=== PATIENT | female | born 1950 | race Caucasian/White ===

== ENCOUNTER 2025-04-22 15:08 | Outpatient (AMB) | payer MEDICARE, SELFPAY ==
--- OUTSIDE RECORDS SUMMARY | 2024-08-08 06:42 | XMS_ITS | Continuity of Care Document ---
Author Organization [facility] Address [address] [place] [address] Phone Care Team Providers Care Family Sociologist Name Role Phone Roman Montaño MD Unavailable Unavailable Allergies, Adverse Reactions, Alerts Substance Reaction Status Criticality UNCLASSIFIED DRUG Active No Informa tion prednisone Active No Information Medications Medication Instructions Dosage Effective Dates (start - stop) Status Comments lisinopril 40 mg tablet take 1 tablet by oral route every day 40 MG - Active chlorthalidone 25 mg tablet take 1 tablet by oral route every day 25 MG - Active Imvexxy Maintenance Pack 10 mcg vaginal insert insert 1 vaginal insert by vaginal route 2 times every week (every 3 or 4 days) 10 MCG - Active Fish Oil 1,000 mg (120 mg-180 mg) capsule - Active ropinirole 0.5 mg tablet take 1 tablet by oral route 3 times every day 0.5 MG - Active carvedilol 25 mg tablet take 1 tablet by oral route 2 times every day with food 25 MG - Active amlodipine 2.5 mg tablet take 1 tablet by oral route every day 2.5 MG - Active rosuvastatin 10 mg tablet take 1 tablet by oral route every day 10 MG - Active Procedures Procedure Date Monovisc, Inj 4mL Drain/inject major joint or bursa Monovisc, Inj 4mL Drain/inject major joint or bursa Office/outpatient visit,est, Straightfor matute Office/outpatient visit,new, Low 2023 X-ray exam of knee, 3 views X-ray exam of knee, 3 views X-ray exam of knee, 3 views X-ray exam of knee, 3 views Office/outpatient visit,[facility] 2023 Advance Directives Directive Yes / No Effective Date File Name No Information Encounters Encounter Description Practice Location Reason(s) For Visit Diagnoses Date Provider Providers Copied on Encounter Office/outpatien t visit,[facility], [address], [place], [place], [id number], tel:[phone] knee pain on the right greater than the left (chief complaint) Body mass index [BMI] 28.0-28.9, adultPrimary osteoarthriti s of left kneePrimary osteoarthriti s of right knee Danyel Owens . [address], [address], [place], [place], [address] , [place]. tel:[phone] Referring Provider: Roman Montaño MD , [address], [place], [address] . tel:[phone] [facility], [address], [place], [place], [address], [place] tel:[phone] Primary osteoarthriti s of left kneePrimary osteoarthriti s of right knee 4 Danyel Owens . [address], [address], [place], [place], [address] , [place]. tel:[phone] Referring Provider: Roman Montaño MD H, [address], [place], [address] . tel:[phone] Office/outpatien t visit,[facility], [address], [place], [place], [address], [place] tel:[phone] knee pain equally on both sides (chief complaint) Body mass index [BMI] 28.0-28.9, adultRight knee pain, unspecified chronicityLef t knee pain, unspecified chronicityPri lai osteoarthriti s of right kneePrimary osteoarthriti s of left knee 4 Danyel Owens . [address], [address], [place], [place], [address] , [place]. tel: [phone] Referring Provider: Roman Montaño MD H, [address], [place], [address] . tel:[phone] [facility], [address], [place], [place], [id number], tel:[phone] No Information 4 Danyel Owens . [address], [address], [place], [place], [address] , [place]. tel: [phone] [facility], [address], [place], [address], [place] tel:[phone] No Information 4 Danyel Owens . [address], [address], [place], [place], [address] , [place]. tel: [phone] Family History Family Member Type Diagnosis Age At Onset Sister Problem (finding) Cancer, unknown Father Problem Cancer, lung Sister Problem (finding) Rheumatoid arthritis Sister Problem (finding) Arthritis Father Problem (finding) Cancer, prostate Maternal grandmother Problem (finding) Cancer, colon Sister Problem (finding) Hypertension Mother Problem (finding) Thyroid disorder Mother Problem (finding) High cholesterol Father Problem (finding) COPD Mother Problem (finding) Osteoarthritis Mother Problem (finding) Hypertension Father Problem (finding) Hypertension Payers Payer name Insurance type Covered republican ID Authoryeseniaa tiilia(s) MEDICARE [id number] BCBS PPO OUT OF STATE [id number] Social History Type Description Quantity Date Captured Comments Alcohol Use Details Wine and vodka 1 Occasionally 025 Caffeine Use Details No Tobacco Use Status Current non-smoker 25 Smoking Status Never smoker Sex Female Vital Signs Date / Time: Height Weight BMI Pulse Rate Blood Pressure Temperature Respiratory Rate Body Surface Area Head Circumference Head Circ. Percentile Wt./Marshall. Percentile BMI percentile Pulse Ox Inhaled Ox 11:01 AM 68.00 in 83.915 kg (185.00 lbs) 28.1 3 kg/m eter (2) 2.01 meter(2) Chief Complaint And Reason For Visit From encounter dated '08/08/2024 10:42'. knee pain on the right greater than the left (chief complaint). Description: Ms Romero is a 74 year old female who complains of knee pain on the right greater than the left. Patient presents today forbilateral Monovisc injections- She presents with pain on the right greater than the left side. She states that the symptoms have been chronic non-traumatic. The symptoms occur intermittently. The problem is fluctuating. Currently the patient states that the symptoms are moderate-severe. The pain isdescribed as aching. The symptoms occur intermittently. She also reports additional pain in the entire knee region on the right greater than the left side. She rates her worst pain as 8/10. She ratesher current pain as 0/10. The symptoms are aggravated by daily activities. Romy states that the symptoms are relieved by no specific activity. Reason For Referral Reason For Referral No Information Plan Of Treatment Date Type Action Status Goal Lifestyle education regardin g diet completed Goal Lifestyle education regardin g diet completed Goal Lifestyle education regardin g diet completed Referral Ordered: X-ray exam of knee, 3 views LT ordered Referral Ordered: X-ray exam of knee, 3 views RT ordered History Of Present Illness Encounter Date Complaint History Of Prese nt Illness knee pain on the rig ht greater than the left Ms Romero is a 74 year old female who complains of knee pain on the right greater than the left. Patient presents today for bilateral Monovisc injections- She presents with pain on the right greater than the left side. She states that the symptoms have been chronic non-traumatic. The symptoms occur intermittently. The problem is fluctuating. Currently the patient states that the symptoms are moderate-severe. The pain is described as aching. The symptoms occur intermittently. She also reports additional pain in the entire knee region on the right greater than the left side. She rates her worst pain as 8/10. She rates her current pain as 0/10. The symptoms are aggravated by daily activities. Romy states that the symptoms are relieved by no specific activity. knee pain equally on both sides Romy Romero is a 74 year old female. Patient presents to the office for ER follow up of the right knee. She states she developed severe pain in the right knee while traveling. She also would like to have her left knee looked at as well as that one is bothering her today as well. She presents with pain and stiffness on the right and left side equally. The symptoms occur constantly with intermittent worsening. The problem is unchanged. Currently the patient states that the symptoms are moderate. The pain is described as aching and discomforting. The symptoms occur continuously. The patient is experiencing pain in the following location: posterior and medial side of knee on the right side and medial side of knee on the left side. She rates her worst pain as 7/10. She rates her current pain as 3/10. The pain does not radiate. The symptoms are aggravated by standing and walking. Romy states that the symptoms are relieved by ice, elevation and brace. Functional Status Date Functional Assessmen t No Information Instructions Date Instruction Additional Infor ayaz Patient is here for bilateral Monovisc injections. We reviewed the medication as well as expectations. She tolerated the injections well, may continue with activity as tolerated. Follow-up on an as necessary based Related to Primary osteoarthritis of right knee Lifestyle education regarding di et Related to Body mass index [BMI] 28.0-28.9, adult We discussed imaging and exam findings. Presents with a chief complaint of bilateral knee pain. No specific antecedent trauma but she thinks it began after a long drive. Her findings are consistent with primary osteoarthritis of both knees, particular the medial compartments. We discussed potential pathologies including injections and joint replacement surgery. She is doing well enough at this point that she wishes to hold off on any sort of formal intervention and continue with activity as tolerated. NSAIDs as necessary for pain, follow-up on an as necessary basis Related to Primary osteoarthritis of left knee Lifestyle education regarding di et Related to Body mass index [BMI] 28.0-28.9, adult Lifestyle education regarding di et Related to Body mass index [BMI] 28.0-28.9, adult Assessments Type Assessment Date assessment Body mass index [BMI] 28.0-28.9, adult assessment Primary osteoarthritis of left k nee assessment Primary osteoarthritis of right knee impression Body mass index [BMI] 28.0-28.9, adult. impression Primary osteoarthritis of bilate ral knee. Patient Care Teams Name Effective Dates (start - stop) Status Members No Information
--- NOTE | 2025-04-22 15:09 | MHC.OFFVIS ---
Vital Signs 04/22/25 15:13 Height 5 ft 7.5 in Weight 194 lb 8 oz BMI 30.0 BP 136/80 Blood Pressure Location Rt brachial Position Sitting Pulse 72 Pulse Source Pulse Oximeter Pulse Oximetry (%) 95 Oxygen Delivery Method Room Air Intake Visit Reasons: ENP - Restless Leg Intake Note: RLS Ordnance Technician Required: No Accompanied by: Self / Same As Patient Allergies prednisone Allergy (Unknown, Verified 04/22/25 15:10) heart racing and red face Medication List - Last Reconciled 04/22/25 by Miriam Figueroa MD carvedilol 25 mg PO BID chlorthalidone 25 mg PO DAILY lisinopril 40 mg PO DAILY lorazepam 0.5 mg PO BEDTIME PRN magnesium citrate 125 mg PO DAILY omeprazole 20 mg PO DAILY ropinirole 0.5 mg PO BEDTIME rosuvastatin 10 mg PO DAILY HPI Comments Details: 75y/o female comes for neurological evaluation of restless legs syndrome . she had Lumbar fusion L3,27 Apr 2022 - after a few months she started having creepy crawly sensations ,urge to move and stretch the legs , starts when she is sitting in the evening , improves when she stands and walks around. If she goes to bed and lays flat on her back it helps. Now the symptoms are starting in the morning and she gets up form ehr bed and walks around. she takes ropinirole and for 8-9 mths she is good.) 0.25 mg at 1pm 0.5mg at 6 pm 8 pm 9.30pm .she also takes Magnesium at bedtime. she also has ESPINOZA on CPAP- followed up by a specialist in [place]. [facility] Medical History (Updated 04/22/25 @ 15:51 by Miriam Figueroa MD) Restless legs syndrome (RLS) FH: MERLE-BSO (total abdominal hysterectomy and bilateral salpingo-oophorectomy) Right inguinal hernia Abnormal colonoscopy Fusion of spine, lumbar region Fusion of spine, cervical region Bakers cyst Rosacea Restless legs syndrome (RLS) ESPINOZA (obstructive sleep apnea) Osteoarthritis of knees, bilateral Spinal stenosis HTN (hypertension) Dyslipidemia Surgical History S/P lumbar fusion S/P cervical spinal fusion History of ankle surgery History of total abdominal hysterectomy Family History Father COPD (chronic obstructive pulmonary disease) Lung cancer Smoker Cancer Mother HTN (hypertension) Graves disease S/P hysterectomy Maternal Grandmother Diabetes Paternal Uncle Lung cancer Cancer Maternal Uncle Heart disease Maternal Aunt Colon cancer Social History Alcohol intake: current Comment: 1 glass of white wine 1-2 times a week. Patient Tobacco Use Status: Former Tobacco user Physical Exam Vital Signs: Last Vital Signs Pulse 72 04/22/25 15:13 BP 136/80 04/22/25 15:13 Pulse Ox 95 04/22/25 15:13 Oxygen Delivery Method Room Air 04/22/25 15:13 BMI result Body Mass Index 30.0 Const General: cooperative, healthy appearing and comfortable Nutritional Appearance: average body habitus Orientation/consciousness: patient oriented x3 Eyes Pupils: Equal, round and reactive pupils present Neuro General: patient oriented x3, gait normal, tone normal, moves all extremities and no focal motor deficits Cranial nerves: Yes Facial sensation intact/muscles of mastication intact, Yes Intact sense of smell present, Yes Equal, round and reactive pupils present, Yes Bilaterally intact EOM present, Yes Nystagmus not present, Yes Normal facial strength present, Yes Midline tongue present, Yes Symmetric palate elevation present and Yes Ability to bilaterally elevate shoulders present Cognition (Neuro): normal cognition Gait exam (Neuro): Normal gait present Motor exam (neuro): 5/5 motor strength present throughout and Normal motor muscle tone present throughout Deep tendon reflexes (DTR's): Right triceps reflex intensity grade: 1+, Left triceps reflex intensity grade: 1+, Rt Biceps (C5, C6): 1+, Left biceps reflex intensity grade: 1+, Right brachioradialis reflex intensity grade: 1+, Left brachioradialis reflex intensity grade: 1+, Right patellar reflex intensity grade: 1+ and Left patellar reflex intensity grade: 3+ Coordination: fwhuvt-up-mgal test normal Assessment & Plan Assessment & Plan (1) Restless legs syndrome (RLS): Code(s): G25.81 - Restless legs syndrome Category: Medical Plan Patient has frequent breakthrough symptoms with short acting ropinirole Ropinirole XL 2mg at 6 pm and use ropnirole 0.5mg 1/2 tab at 1 pm and as needed afetr that she will benefit form along acting ropinirole for good control of her symptoms - and improved quality of life will check ferritin level continue magnesium consider gabapentin Orders: Orders Ferritin 04/22/25 G25.81 - Restless legs syndrome Medications: New ropinirole ER 2 mg PO DAILY 30 tabs 3RF Coding Level of Care Code New Pt Level 4 (37677) Complex EM visit Add On G2211 Diagnoses Restless legs syndrome (RLS) G25.81
[2025-04-22 15:13] VITALS: BP 136/80; PULSE 72; O2SAT 95
--- OUTSIDE RECORDS SUMMARY | 2025-04-22 17:16 | XMS_ITS | Encounter Summary ---
Author Organization [facility] Address [address] [place] [address] Phone Care Team Providers Care Services Rep Name Role Phone Aram Allen MD Primary Care Provider Self-Referred, Patient Unavailable Unavailab le Encounter Details Date Type Department Care Team (Late Contact Info) Description 02/10/2022 Telephone [facility] Department of Orthopaedic Surgery, Arthroplasty Service [address] [facility], [address] [place] [address] Bull Ellis MD [address] [facility] [facility] [address] [place] [address] [email or web address] Social History Tobacco Use Types Packs/Day Years Used Date Smoking Tobacco: Former Cigarettes 0.5 20 0 08/13/1967 - 08/13/1987 Smokeless Tobacco: Former Comments:Quite age 38 Alcohol Use Standard Drinks/Week Comments Yes 4 (1 standard drink = 0.6 oz pur e alcohol) Every Weekend Comments No Sex and Gender Information Value Date Recorded Sex Assigned at Female 05/16/2021 2:54 PM EDT Legal Sex Female 10:53 AM EDT Gender Identity Female 05/16/2021 2:54 PM EDT Sexual Orientation Straight 05/16/2021 2: 55 PM EDT documented as of this encounter Plan of Treatment Upcoming Encounters Date Type Department Care Team (Late Contact Info) Description 05/13/2025 10:45 AM EDT Office [facility] [address] [facility] [place], [place] [address] Aram Allen MD [address] [place] [address] Adri Grimes, PT [address] [facility] [place], [place] [address] 05/15/2025 10:45 AM EDT Office Visit [facility] [address] [facility] [place], [place] [address] Aram Allen MD [address] [place] [address] Adri Grimes, PT [address]43 [facility] [place], [place] [address] 05/20/2025 10:45 AM EDT Office Visit [facility] [address] [facility] [place], [place] [address] Aram Allen MD [address] [place] [address] Adri Grimes, PT [address] [facility] [place], [place] [address] 05/22/2025 10:45 AM EDT Office Visit [facility] [address] [facility] [place], [place] [address] Aram Allen MD [address] [place] [address] Adri Grimes, PT [address] [facility] [place], [place] [address] [email or web address] 05/27/2025 2:30 PM EST Office Visit [facility] [address] [facility] [place], [place] [address] Aram Allen MD [address] [place] [address] Adri Grimes, PT [address] [facility] [place] [address] [email or web address] 05/29/2025 2:30 PM EST Office Visit [facility] [facility] [place] [address] Aram Allen MD [address] [place] [address] Cornelio Adri, PT [address] [facility] [place] [address] [email or web address] 06/03/2025 10:45 AM EST [facility] [place] [address] Aram Allen MD [address] [place] [address] Grimes Adri, PT 6[address] [facility] [place] [address] [email or web address] documented as of this encounter Visit Diagnoses Not on filedocumented in this encounter Additional Health Concerns Assessment Noted Time PHQ-2 Depression Total Score: 0 12/29/19 19 11:50 AM EDT documented as of this encounter Care Teams Services Rep Relationship Specialty Start Date End Date Aram Allen MD [address] [place] [address] PCP - General Internal Medicine 06/13/18 Self-Referred, Patient 06/13/18 documented as of this encounter Additional Source Comments The information contained in this document represents components of the legal health record. It is not the complete legal health record.[facility]
--- OUTSIDE RECORDS SUMMARY | 2025-04-22 17:16 | XMS_ITS | Encounter Summary ---
Author Organization [facility] Address [address] [place] [address] Phone Care Team Providers Care Commis Chef Name Role Phone Pcp, Unknown Primary Care Provider Unavailabl e Pcp, Unknown Unavailable Unavailable Unknown, Unknown MD Primary Care Provider UnaAram Renae MD Primary Care Provider [phone] Self-Referred, Patient Unavailable Unavailab le Reason for Referral * Physical Therapy - Closed Specialty Diagnoses / Procedures Referred By Bladimir shepherd Referred To Contact Physical Therapy Diagnoses Low back pain, unspecified back pain laterality, unspecified chronicity, with sciatica presence unspecified Aram Allen MD Phone: tel: fax: Referral ID Status Reason Start Date Expiration Date Visits Re quested Visits Authorized [id number] Closed 11/13/2016 11/13/2017 99 99 Encounter Details Date Type Department Care Team (Latest Contact Info) Description 11/13/2016 Transcribe Orders [facility] [address] [place] [address] Luis A Patel, CONNIE Low back pain, unspecified back pain laterality, unspecified chronicity, with sciatica presence unspecified (Primary Dx) Social History Tobacco Use Types Packs/Day Years Used Date Smoking Tobacco: Never Assessed Comments Unknown Sex and Gender Information Value Date Recorded Sex Assigned at Female 05/16/2021 2:54 PM EDT Legal Sex Female 10:53 AM EDT Gender Identity Female 05/16/2021 2:54 PM EDT Sexual Orientation Straight 05/16/2021 2: 55 PM EDT documented as of this encounter Plan of Treatment Upcoming Encounters Date Type Department Care Team (Late st Contact Info) Description 05/13/2025 10:45 AM EDT Office Visit [facility] [place] [address] Aram Allen MD [address] [place] [address] Adri Grimes, PT [address] [facility] [place] [address] 05/15/2025 10:45 AM EDT Office Visit [facility] [facility] [place] [address] Aram Allen MD [address] [place] [address] Adri Grimes, PT [address] [facility] [place] [address] [email or web address] 05/20/2025 10:45 AM EDT Office Visit [facility] [place] [address] Aram Allen MD [address] [place] [address] Adri Grimes, PT 55[address] [facility] [place] [address] [email or web address] 05/22/2025 10:45 AM EDT Office Visit [facility] [place] [address] Aram Allen MD [address] [place] [address] Adri Grimes, PT [address] [facility] [place] [address] [email or web address] 05/27/2025 2:30 PM EST Office Visit [facility] [address] [place] [address] [place] [address] Aram Allen MD [address] [place] [address] Adri Grimes, PT 75[address] [facility] [place] [address] [email or web address] 05/29/2025 2:30 PM EST Office Visit [facility] [address] [place], [place] [address] [place] [address] Aram Allen MD [address] [place] [address] Adri Grimes, PT [address] [facility] [place] [address] [email or web address] 06/03/2025 10:45 AM EST Office Visit [facility] [address] [place], [place] [address] [place] [address] Aram Allen MD [address] [place] [address] Adri Grimes, PT 0796 [facility] [place] [address] [email or web address] documented as of this encounter Procedures Procedure Name Priority Date/Time Associated Diagnosis Comments AMB REFERRAL TO [facility] Routine 12/09/2016 12:49 PM EDT Low back pain, unspecified back pain laterality, unspecified chronicity, with sciatica presence unspecified documented in this encounter Results * Ambulatory referral to [facility] (12/09/2016 12:49 PM EDT) Aram Allen MD AMB [facility] REFERRALS Final Resu lt documented in this encounter Visit Diagnoses Diagnosis Low back pain, unspecified back pain laterality, unspecified chronicity, with sciatica presence unspecified- Primary documented in this encounter Care Teams Commis Chef Relationship Specialty Start Date End Date Pcp, Unknown PCP - General 01/22/14 11/25/16 Unknown, Unknown, MD PCP - General 11/26/16 06/12/18 Aram Allen MD [address] [place] [address] PCP - General Internal Medicine 06/13/18 Pcp, Unknown 01/22/14 11/25/16 Self-Referred, Patient 06/13/18 documented as of this encounter Additional Source Comments The information contained in this document represents components of the legal health record. It is not the complete legal health record.[facility]
--- OUTSIDE RECORDS SUMMARY | 2025-04-22 17:16 | XMS_ITS | Encounter Summary ---
Author Organization [facility] Address [address] [place] [phone] Phone Care Team Providers Care Director Drug Safety Name Role Phone Unknown, Unknown Primary Care Provider Aram Jacobs MD Primary Care Provider Self-Referred, Patient Unavailable Unavailab le Encounter Details Date Type Department Care Team (Late st Contact Info) Description 12/13/2016 Transcribe Orders [facility] [address] [place] [address] Evelin Madrid Social History Tobacco Use Types Packs/Day Years [...] Description 05/13/2025 10:45 AM EDT Office Visit [facility] [address] [facility] [place] [address] Aram Allen MD [address] [place] [address] Adri Grimes, PT [address] [place] [address] 05/15/2025 10:45 AM EDT Office Visit [facility] [place] [place] [address] Aram Allen MD [address] [place] [address] Adri Grimes, PT [address] [place] [address] 05/20/2025 10:45 AM EDT Office Visit [facility] [place] [address] Aram Allen MD [address] [place] [address] Adri Grimes, PT [address] [email or web address] [address] 05/22/2025 10:45 AM EDT Office Visit [facility] [place] [address] Aram Allen MD [address] [place] [address] Adri Grimes, PT [address] [place] [address] 05/27/2025 2:30 PM EST Office Visit [facility] [place] [place] [address] Aram Allen MD [address] [place] [address] Adri Grimes, PT [address] [facility] [place] [address] [email or web address] 05/29/2025 2:30 PM EST Office Visit [facility]note 3] [place] [address] Aram Allen MD [address] [place] [phone] Adri Grimes, PT [address] [facility] [place] [address] [email or web address] 06/03/2025 10:45 AM EST Office Visit [facility] [place] [address] Aram Allen MD [address] [place] [address] Adri Grimes, PT [address] [facility] [place] [address] [email or web address] documented as of this encounter Visit Diagnoses Not on filedocumented in this encounter Care Teams Director Drug Safety Relationship Specialty Start Date End Date Unknown, Unknown, MD PCP - General 11/26/16 06/12/18 Aram Allen MD [address] [place] [id number] PCP - General Internal Medicine 06/13/18 Self-Referred, Patient 06/13/18 documented as of this encounter Additional Source Comments The information contained in this document represents components of the legal health record. It is not the complete legal health record.[facility]
--- OUTSIDE RECORDS SUMMARY | 2025-04-22 17:16 | XMS_ITS | Clinical Summary ---
Author Organization [facility] Address [address] [place] [id number] Care Team Providers Care Unemployment Claims Adjudicator Name Role Phone Aram Allen MD Primary Care Provider [phone] Alonzo Rosa Unavailable Allergies Active Allergy Reactions Criticality Noted Date Comments Pollen Extract Other 09/01/2021 Other reaction(s): Other (See Comments) Medications * This document contains information received from the source organization and may not represent a complete record from that organization. rosuvastatin (Crestor) 10 MG tablet Take 10 mg by mouth 1 (one) time each day. Active carvedilol (Coreg) 25 MG tablet Take 25 mg by mouth in the morning and 25 mg before bedtime. 3 Active chlorthalidone (Hygroton) 25 MG tablet Take 25 mg by mouth 1 (one) time each day. Active amLODIPine (Norvasc) 2.5 MG tablet Take 2.5 mg by mouth 1 (one) time each day. 3 Active lisinopril (Prinivil, Zestril) 40 MG tablet Take 40 mg by mouth in the morning. 2 Active magnesium oxide (Mag-Ox) 400 MG tablet Take 800 mg by mouth before bedtime. Active diclofenac (Voltaren) 75 MG EC tablet Take 75 mg by mouth in the morning and 75 mg in the evening. 5 Active LORazepam (Ativan) 0.5 MG tablet Take 0.5-1 mg by mouth if needed for anxiety 1 hour before flying. Active rOPINIRole (Requip) 0.5 MG tablet Take 0.5 mg by mouth 3 (three) times a day 0.5 mg (1 tab) at Noon and 1700; 1 mg (2 tabs) at 2000. 4 Active estradiol (Vagifem) 10 MCG tablet vaginal tablet Insert 10 mcg into the vagina 1 (one) time each day Tuesday and Tuesday . Active cholecalciferol (Vitamin D-[address]) 25 MCG (1000 UT) tablet Take 1,000 Units by mouth 1 (one) time each day. Active Naproxen Sodium (ALEVE PO) Take 1 tablet by mouth if needed (pain). Active predniSONE (Deltasone) 10 MG tablet Take 6 tablets (60 mg total) by mouth 1 (one) time each day in the morning for 2 days, THEN 5 tablets (50 mg total) 1 (one) time each day in the morning for 2 days, THEN 4 tablets (40 mg total) 1 (one) time each day in the morning for 2 days, THEN 3 tablets (30 mg total) 1 (one) time each day in the morning for 2 days, THEN 2 tablets (20 mg total) 1 (one) time each day in the morning for 2 days, THEN 1 tablet (10 mg total) 1 (one) time each day in the morning for 2 days. 42 tablet 5 03/27/20 25 Discontinu ed(Patient Refused) Hospital, Clinic, or Other Facility Administered Medication Ordered Dose Route Frequency Start Date End Date Status albuterol (Proventil;Ventolin) 108 (90 Base) MCG/ACT inhaler 2 puff 2 puff IN Once 03/27/2025 03/27/2025 Ended predniSONE (Deltasone) tablet 60 mg 60 mg PO Once 03/27/2025 03/27/2025 Discontinued Active Problems Problem Noted Date Diagnosed Date Restless leg syndrome 03/27/2025 Sleep apnea 03/27/2025 Malaise and fatigue 02/24/2025 GERD (gastroesophageal reflux disease) 4 Assessment & Plan (06/14/2024 10:41 AM EST): Likely worsened by Ozempic. For now suggest p.r.n. famotidine. Will plan for upper endoscopy to rule out Barretts esophagus in the setting of her family history and prior smoking history. Adenomatous polyp of colon 06/14/2024 Assessment & Plan (06/14/2024 10:41 AM EST): History of adenomatous colon polyps. Plan for colonoscopy now. Discussed preparations and risks benefits of the procedure. Will proceed. She knows to hold her Ozempic prior to the procedure. Spinal stenosis 05/04/2022 Encounters Date Type Department Care Team Description 03/29/2025 7:34 PM EDT - 03/29/2025 11:59 PM EDT Hospital Encounter [address] [id number] Other disorders of electrolyte and fluid balance, not elsewhere classified Discharge Disposition: Home/Self Care 03/29/2025 Orders Only [address] [phone] Aram Allen MD Other disorders of electrolyte and fluid balance, not elsewhere classified 03/27/2025 2:36 PM EDT - 03/27/2025 11:59 PM EDT Hospital Encounter [facility] [place] [address] [place] [address] Discharge Disposition: Home/Self Care 03/27/2025 1:45 PM EDT Office Visit [facility] [address] [place] [place] [address] Senia Uribe NP Viral upper respiratory tract infection (Primary Dx) 03/05/2025 7:11 AM EDT - 03/05/2025 11:59 PM EDT Hospital [facility]counter [facility] [address] [place] [address] Other fatigue; Chest pain, unspecified; Essential (primary) hypertension; Epigastric pain Discharge Disposition: Home/Self Care 03/04/2025 4:30 PM EDT Office Visit [facility] [address] [place] [address] Alon Enriquez NP Impacted cerumen of left ear (Primary Dx) 02/24/2025 1:54 PM EDT - 02/25/2025 5:50 PM EDT Hospital Encounter [facility] [address] [place] [address] Keven Moseley MD Ssebayigga, Elizabeth, MD Chest pain, unspecified type (Primary Dx); Dyspnea on exertion; Accelerated hypertension Discharge Disposition: Home/Self Care from Last 3 Months Social History Tobacco Use Types Packs/Day Years Used Date Smoking Tobacco: Former Smokeless Tobacco: Never Tobacco Cessation:Counseling Given: Not Answered Alcohol Use Standard Drinks/Week Comments Yes 0 (1 standard drink = 0.6 oz pur e alcohol) B1300 Health Literacy Answer Date Recor ded How often do you need to hav e someone help you when you read instructions, pamphlets, or other written material from your doctor or pharmacy? Never 02/24/2025 Overall Financial Resource Strain (CARDIA) Answe r Date Recorded How hard is it for you to pa y for the very basics like food, housing, medical care, and heating? Not hard at all 02/25/2025 PHQ-2 Answer Date Recorded Patient Health Questionnaire-2 Score 0 02/24/2025 [facility] - Occupational Stress Questionnaire Answer Date Recorded Do you feel stress - tense, restless, nervous, or anxious, or unable to sleep at night because your mind is troubled all the time - these days? Not at all 02/24/2025 Exercise Vital Sign Answer Date Recorde d On average, how many days pe r week do you engage in moderate to strenuous exercise (like a brisk walk)? 0 days 02/24/2025 On average, how many minutes do you engage in exercise at this level? 0 min 02/24/2025 Hunger Vital Sign Answer Date Recorded Within the past 12 months, y ou worried that your food would run out before you got the money to buy more. Never true 02/26/20 25 Within the past 12 months, t he food you bought just didn't last and you didn't have money to get more. Never true 02/25/2025 PRAPARE - Transportation Answer Date Re corded In the past 12 months, has l ack of transportation kept you from medical appointments or from getting medications? No 10/2024 In the past 12 months, has l ack of transportation kept you from meetings, work, or from getting things needed for daily living? No 02/25/2025 Housing Stability Vital Sign Answer Oskar e Recorded In the last 12 months, was t here a time when you were not able to pay the mortgage or rent on time? No 02/25/2025 Number of Times Moved in the Last Year Not on fi le 02/25/2025 At any time in the past 12 m [facility], were you homeless or living in a senior care (including now)? No 02/25/2025 Alcohol Use/AUDIT-C Answer Date Recorde d How often do you have a drin k containing alcohol? Never 02/24/2025 How many standard drinks con taining alcohol do you have on a typical day? Patient does not drink 02/24/2025 How often do you have six or more drinks on one occasion? Unrecognized value 02/24/2025 Comments No Sex and Gender Information Value Date Recorded Sex Assigned at Female 03/05/2021 4:07 PM EDT Legal Sex Female 9:35 PM EDT Gender Identity Female 03/05/2021 4:07 PM EDT Sexual Orientation Straight 03/05/2021 4: 07 PM EDT Last Filed Vital Signs Vital Sign Reading Time Taken Comments Blood Pressure 148/82 03/27/2025 1:51 PM EDT Pulse 69 03/27/2025 1:51 PM EDT Temperature 36.8 C (98.3 F) 03/27/2025 1:51 PM EDT Respiratory Rate 16 03/27/2025 1:51 PM EDT Oxygen Saturation 97% 03/27/2025 1:51 PM EDT Inhaled Oxygen Concentration - - Weight 85.9 kg (189 lb 6 oz) 02/24/2025 8:28 PM EDT Height 170.2 cm (5' 7 ) 02/24/2025 8:28 PM EDT Body Mass Index 29.66 02/24/2025 8:28 PM EDT Plan of Treatment Upcoming Encounters Date Type Department Care Team (Late st Contact Info) Description 04/25/2025 6:00 AM EDT Appointment WARREN denson [facility] [address] [place] [address] Alon Ibarra, PT Health Maintenance Due Date Last Done Comments Hepatitis C Screening 1950 Diabetes: Retinopathy Screening 1970 DTaP,Tdap,and Td Vaccines (1 - Tdap) 1971 CT Colonography 1997 FIT 1997 FOBT 1997 Sigmoidoscopy 1997 Diabetes: Hemoglobin A1C 12/08/2005 12/08/2004 Respiratory Syncytial Virus (RSV): 60+ years (1 - Risk 60-74 years 1-dose series) 2012 Pneumococcal Vaccine: 50+ (2 of 2 - PCV) 07/02/2021 07/02/2020 COVID-19 Vaccine ( season) 2025 07/04/2024, 06/11/2022, 12/16/2021, Additional history exists FIT-DNA 2025 2022 Mammogram 12/29/2025 12/29/2024, 05/0 12/2023, 11/28/2023, Additional history exists Osteoporosis Screening 01/25/2028 01/25/2024, 2020 Colonoscopy 06/26/2034 06/26/2024, 2022 Colorectal Cancer Screening 06/26/2034 Lipid Panel Discontinued 12/08/2004 Pneumococcal Vaccine: Pediatrics (0 to 5 Years) and At-Risk Patients (6 to 64 Years) Discontinued 07/02/2020 Zoster Vaccines Completed 03/03/2023, 11/01/2022 Influenza Vaccine Completed 04/13/2025, , 05/20/2023, Additional history exists HPV Vaccines Aged Out No longer eligi ble based on patient's age to complete this topic Meningococcal Vaccine Aged Out No shamar mayra eligible based on patient's age to complete this topic Procedures Procedure Name Priority Date/Time Associated Diagnosis Comments MR BRAIN WO CONTRAST Routine 03/29/2025 8:20 PM EDT Other disorders of electrolyte and fluid balance, not elsewhere classified XR CHEST 2 VIEWS (PA AND LATERAL) STAT 03/27/2025 2:42 PM EDT TRANSTHORACIC ECHO (TTE) COMPREHENSIVE STAT 03/05/2025 7:33 AM EDT Other fatigue Chest pain, unspecified Essential (primary) hypertension Epigastric pain CBC W/AUTO DIFFERENTIAL Routine 02/25/2025 5:22 AM EDT CBC W/AUTO DIFFERENTIAL Routine 02/25/2025 5:22 AM EDT BASIC METABOLIC PANEL Routine 02/25/2025 5:22 AM EDT MAGNESIUM Routine 02/25/2025 5:[address] CHEST - ABDOMEN - PELV ANGIO WWO CONTRAST Critical 02/24/2025 4:45 PM EDT CK Add-On 02/24/2025 4:22 PM EDT TSH W/REFLEX FT4 Add-On 02/24/2025 4:22 PM EDT TROPONIN I STAT 02/24/2025 4:22 PM EDT ECG 12-LEAD STAT 02/24/2025 4:02 PM EDT URINALYSIS WITH REFLEX MICROSCOPIC AND CULTURE STAT 02/24/2025 4:01 PM EDT LIPASE STAT 02/24/2025 3:40 PM EDT HEPATIC FUNCTION PANEL STAT 02/24/2025 3:40 PM EDT BASIC METABOLIC PANEL STAT 02/24/2025 3:40 PM EDT XR CHEST 1 VIEW PORTABLE STAT 02/24/2025 2:27 PM EDT CBC W/AUTO DIFFERENTIAL STAT 02/24/2025 2:18 PM EDT TICK BORNE DISEASE PANEL 4M STAT 02/24/2025 2:18 PM EDT MAGNESIUM STAT 02/24/2025 2:18 PM EDT TROPONIN I STAT 02/24/2025 2:18 PM EDT CBC W/AUTO DIFFERENTIAL STAT 02/24/2025 2:18 PM EDT B-TYPE NATRIURETIC PEPTIDE STAT 02/24/2025 2:18 PM EDT D-DIMER, QUANTITATIVE STAT 02/24/2025 2:18 PM EDT ECG 12-LEAD STAT 02/24/2025 1:49 PM EDT BI MAMMOGRAM SCREENING TOMOSYNTHESIS BILATERAL Routine 12/29/2024 9:02 AM EDT Visit for screening mammogram DEXA BONE DENSITY AXIAL SKELETON W VFA Routine 01/25/2024 1:52 PM EDT Age-related osteoporosis without current pathological fracture from Last 3 Months or Most Recently Relevant to Health Maintenance Results * MR head wo IV contrast (03/29/2025 8:20 PM EDT) Anatomical Region Laterality Modality Head N/A Magnetic Resonan ce 03/30/2025 7:48 AM EDT Impressions 03/30/2025 7:53 AM EDT No evidence of stroke. No hydrocephalus. Additional findings as above. Report Narrative 03/30/2025 7:53 AM EDT EXAM: MR BRAIN WO CONTRAST CLINICAL INDICATION: Other disorder of electrolyte and fluid imbalance TECHNIQUE: MRI of the brain was performed without contrast using routine departmental protocol. T1 and T2 sequences obtained. Axial and coronal views obtained. COMPARISON: None FINDINGS: Absence of intravenous contrast may reduce sensitivity for detection of pathology and specificity of findings. No evidence of recent ischemia on diffusion-weighted images. No evidence of hemorrhage, mass effect or midline shift. No hydrocephalus. White matter: Mild subcortical and periventricular white matter changes, nonspecific but most commonly secondary to chronic microangiopathic disease, sequela of prior trauma/infection, or migraine headaches. Demyelinating disease statistically less likely unless there is clinical evidence for such. Remainder of white matter appears normal. Cerebral hemispheres (excluding white matter): Normal-appearing for age Basal ganglia (excluding white matter): Normal appearing Pituitary: Normal appearing Thalamus: Normal appearing Brainstem (excluding white matter): Normal appearing Cerebellum: Normal appearing Internal auditory canals and Meckel's caves: Normal appearing Globes: Normal appearing Visualized paranasal sinuses: Mild pansinusitis Nasopharynx: Normal appearing Mastoid air cells: Aerated This study is not designed to sensitively evaluate the intracranial arteries and dural venous sinuses; an MRA and MRV, respectively, would be the best noninvasive imaging studies for such purpose. Resulting Agency Comment SHC: M2, Name: Medicare ([facility]), Address: [facility] [address], , Group number: Auth: , Joaquín: [id number], Name: Romy Romero, Rel: SELF, : 1950, Gender: F SHC: B99, Name: ALTHIA, Address: [facility] [address],,[place],[address], , Group number: [id number] Auth: , Joaquín: [id number], Name: Romy Romero, Rel: SELF, : 1950, Gender: F Procedure Note Flavio Mays MD - 03/30/2025 EXAM: MR BRAIN WO CONTRAST CLINICAL INDICATION: Other disorder of electrolyte and fluid imbalance TECHNIQUE: MRI of the brain was performed without contrast using routinedepartmental protocol. T1 and T2 sequences obtained. Axial and coronalviews obtained. COMPARISON: None FINDINGS: Absence of intravenous contrast may reduce sensitivity for detection ofpathology and specificity of findings. No evidence of recent ischemia on diffusion-weighted images. No evidence of hemorrhage, mass effect or midline shift. No hydrocephalus. White matter: Mild subcortical and periventricular white matter changes,nonspecific but most commonly secondary to chronic microangiopathicdisease, sequela of prior trauma/infection, or migraine headaches.Demyelinating disease statistically less likely unless there is clinicalevidence for such. Remainder of white matter appears normal. Cerebral hemispheres (excluding white matter): Normal-appearing for age Basal ganglia (excluding white matter): Normal appearing Pituitary: Normal appearing Thalamus: Normal appearing Brainstem (excluding white matter): Normal appearing Cerebellum: Normal appearing Internal auditory canals and Meckel's caves: Normal appearing Globes: Normal appearing Visualized paranasal sinuses: Mild pansinusitis Nasopharynx: Normal appearing Mastoid air cells: Aerated This study is not designed to sensitively evaluate the intracranialarteries and dural venous sinuses; an MRA and MRV, respectively, would bethe best noninvasive imaging studies for such purpose. IMPRESSION: No evidence of stroke. No hydrocephalus. Additional findings as above. Report Aram Allen MD IMG MRI PROCEDURES Final Resul t * XR chest PA and Lateral (03/27/2025 2:42 PM EDT) Anatomical Region Laterality Modality Body N/A Digital Radiogra phy 03/27/2025 2:44 PM EDT Impressions 03/27/2025 2:45 PM EDT No acute pulmonary abnormality. Report Narrative 03/27/2025 2:45 PM EDT HISTORY: Cough TECHNIQUE: 2 view chest COMPARISON: CT chest dated 02/24/2025 FINDINGS: The cardiac, mediastinal, and hilar contours are within normal limits. Lungs are without focal inflammatory abnormality, vascular congestion, focal consolidation, pleural effusion, or pneumothorax. No displaced fracture. No acute bony abnormality. Procedure Note Cindy Myers MD - 03/27/2025 HISTORY: Cough TECHNIQUE: 2 view chest COMPARISON: CT chest dated 02/24/2025 FINDINGS: The cardiac, mediastinal, and hilar contours are within normal limits. Lungs are without focal inflammatory abnormality, vascular congestion,focal consolidation, pleural effusion, or pneumothorax. No displaced fracture. No acute bony abnormality. IMPRESSION: No acute pulmonary abnormality. Report Senia Uribe NP IMG XR PROCEDURES Final Resul t * TRANSTHORACIC ECHO (TTE) COMPREHENSIVE (03/05/2025 7:33 AM EDT) Anatomical Region Laterality Modality Other 03/05/2025 7:17 AM EDT Narrative 03/05/2025 4:32 PM EDT Accession Number: [id number] [facility] [address] [place] [address] Adult Echocardiogram Report Name: Heather ROMERO Date: 03/05/2025 Patient Location:[facility]^ CARDCTR : 1950 Age: 74 yrs Gender:Female Height: 67 in Weight: 189 lb BP: 136/82 mmHg BSA: 2.0 m2 Performed By: Keshia Vyas RDCS Referring Physician: ALONZO ROSA Ordering Physician: ALONZO ROSA Reading Physician: Linda Vicente MD [employer]#: [id number] Interpretation Summary LV is normal in size and systolic function with mild concentric LVH noted. EF= 65%. Aortic valve is trileaflet with mild thickening and sclerosis noted. Trivial AI, no . Mild MR, mild TR. No pericardial effusion. No prior studies are available for comparison or review. Indications Hypertension. Procedure A full transthoracic echocardiogram was performed. The technical quality of this study was poor. Left Ventricle The left ventricle is normal in size. There is mild left ventricular hypertrophy. Left ventricular systolic function is normal. The left ventricular ejection fraction is 65%. Regional wall motion of the left ventricle is normal. Right Ventricle The right ventricle is normal in size. The right ventricle is normal in size and function. Atria The left atrium is normal in size. The right atrium is normal in size. Mitral Valve There is mild mitral annular calcification. The mitral valve leaflets are borderline thickened. There is mild mitral regurgitation. Aortic Valve The aortic valve is trileaflet. There is aortic cusp sclerosis without stenosis. There is trivial aortic insufficiency. Tricuspid Valve The tricuspid valve leaflets are thin and pliable. There is mild tricuspid regurgitation. Estimated RVSP is 22 mm Hg. Pulmonic Valve The pulmonic valve is poorly visualized. There is trace pulmonic regurgitation. There is no pulmonic stenosis. Great vessels The inferior vena cava is normal in size. There is greater than 50% respiratory variation. Aorta The aortic root is normal in size. The ascending thoracic aorta is normal in size in diameter. Pericardium The pericardium is normal in appearance. There is no pericardial effusion. Pericardial Fat pad. MMode/2D Measurements & Calculations IVSd: 0.80 cm LVIDd: 4.7 cm FS: 42.4 % Ao root diam: LVIDs: 2.7 cm ESV(Teich): 27.2 ml 2.9 cm LVPWd: 0.90 cm EF(Teich): 73.5 % LA dimension: 3.1 cm asc Aorta Diam: 2.7 cm LA A2 Volume: LA ESV Index (BP): LA Volume: Ao Arch Diam (Proximal 45.4 ml 49.2 ml trans.): 3.2 cm 26.3 ml/m2 Doppler Measurements & Calculations MV E max morro: MV V2 max: MV dec time: Ao V2 max: 61.8 cm/sec 106.9 cm/sec 0.29 sec 155.0 cm/sec MV A max morro: MV max P.6 mmHg Ao max P.8 cm/sec MV V2 mean: 9.6 mmHg MV E/A: 0.75 75.2 cm/sec Ao V2 mean: MV mean P.4 mmHg 103.0 cm/sec MV V2 VTI: 33.9 cm Ao mean P.0 mmHg Ao V2 VTI: 31.9 cm Lat Peak E' Morro: Med Peak E' Morro: TR max morro: TDI ratio: 5.8 12.7 cm/sec 8.5 cm/sec 233.5 cm/sec E/E' Lateral: 4.9 E/E' Medial: 7.3 TR max P.8 mmHg Procedure Note Alex Vicente MD - 03/05/2025 [facility] [address] [place].[address] Adult Echocardiogram Report Name: Heather ROMERO Date: 03/05/2025 Patient Location:[facility]^^^ LUAN : 1950 Age: 74 yrs Gender:Female Height: 67 in Weight: 189 lb BP: 136/82 mmHg BSA: 2.0 m2 Performed By: Keshia Vyas RDCS Referring Physician: ALONZO ROSA Ordering Physician: ALONZO ROSA Reading Physician: Linda Vicente MD [facility]#: [id number] Interpretation Summary LV is normal in size and systolic function with mild concentric LVH noted.EF= 65%. Aortic valve is trileaflet with mild thickening and sclerosisnoted. Trivial AI, no . Mild MR, mild TR. No pericardial effusion. No prior studies are available for comparison or review. Indications Hypertension. Procedure A full transthoracic echocardiogram was performed. The technical qualityof this study was poor. Left Ventricle The left ventricle is normal in size. There is mild left ventricular hypertrophy. Left ventricular systolic function is normal. The left ventricular ejection fraction is 65%. Regional wall motion of the left ventricle is normal. Right Ventricle The right ventricle is normal in size. The right ventricle is normal insize and function. Atria The left atrium is normal in size. The right atrium is normal in size. Mitral Valve There is mild mitral annular calcification. The mitral valve leafletsare borderline thickened. There is mild mitral regurgitation. Aortic Valve The aortic valve is trileaflet. There is aortic cusp sclerosis without stenosis. There is trivial aortic insufficiency. Tricuspid Valve The tricuspid valve leaflets are thin and pliable. There is mildtricuspid regurgitation. Estimated RVSP is 22 mm Hg. Pulmonic Valve The pulmonic valve is poorly visualized. There is trace pulmonic regurgitation. There is no pulmonic stenosis. Great vessels The inferior vena cava is normal in size. There is greater than 50% respiratory variation. Aorta The aortic root is normal in size. The ascending thoracic aorta is normalin size in diameter. Pericardium The pericardium is normal in appearance. There is no pericardialeffusion. Pericardial Fat pad. MMode/2D Measurements & Calculations IVSd: 0.80 cm LVIDd: 4.7 cm FS: 42.4 % Ao rootdiam: LVIDs: 2.7 cm ESV(Teich): 27.2 ml 2.9 cm LVPWd: 0.90 cm EF(Teich): 73.5 % LAdimension: 3.1 cm asc Aorta Diam: 2.7 cm LA A2 Volume: LA ESV Index (BP): LA Volume: Ao Arch Diam (Proximal 45.4 ml 49.2 ml trans.): 3.2 cm 26.3 ml/m2 Doppler Measurements & Calculations MV E max morro: MV V2 max: MV dec time: Ao V2 max: 61.8 cm/sec 106.9 cm/sec 0.29 sec 155.0 cm/sec MV A max morro: MV max P.6 mmHg Ao max P.8 cm/sec MV V2 mean: 9.6 mmHg MV E/A: 0.75 75.2 cm/sec Ao V2 mean: MV mean P.4 mmHg 103.0 cm/sec MV V2 VTI: 33.9 cm Ao mean P.0 mmHg Ao V2 VTI: 31.9cm Lat Peak E' Morro: Med Peak E' Morro: TR max morro: TDI ratio:5.8 12.7 cm/sec 8.5 cm/sec 233.5 cm/sec E/E' Lateral: 4.9 E/E' Medial: 7.3 TR max P.8 mmHg us Alonzo MANCILLA CV ECHO PROCEDURES Final Resul t * CBC W/AUTO DIFFERENTIAL (02/25/2025 5:22 AM EDT) Only the most recent of2 resultswithin the time period is included. Auto WBC 8.6 4.0 - 10.0 1000/uL 02/25/2025 7:18 AM EDT [facility] Red Blood Count 4.40 3.93 - 5.22 Million/uL 02/25/2025 7:18 AM EDT [facility] Hemoglobin 13.8 11.2 - 15.7 g/dL 02/25/2025 7:18 AM EDT [facility] Hematocrit 40.1 34.1 - 44.9 % 02/25/2025 7:18 AM EDT [facility] MCV 91.1 79.4 - 94.8 fL 02/25/2025 7:18 AM EDT [facility] MCH 31.4 25.6 - 32.2 pg/RBC 02/25/2025 7:18 AM EDT [facility] MCHC 34.4 32.2 - 35.5 g/dL 02/25/2025 7:18 AM EDT [facility] RDWSD 45.5 36.4 - 46.3 Fl 02/25/2025 7:18 AM EDT [facility] Platelets 259 182 - 369 1000/uL 02/25/2025 7:18 AM EDT [facility] Mean Platelet Volume 10.4 9.4 - 12.3 fL 02/25/2025 7:18 AM EDT [facility] Neutrophils Relative 59.4 34.0 - 71.1 % 02/25/2025 7:18 AM EDT [facility] Lymphocytes Relative 29.3 19.3 - 51.7 % 02/25/2025 7:18 AM EDT [facility] Monocytes Relative 7.5 4.7 - 12.5 % 02/25/2025 7:18 AM EDT [facility] Eosinophils Relative 2.7 0.7 - 5.8 % 02/25/2025 7:18 AM EDT [facility] Basophils Relative 0.8 0.1 - 1.2 % 02/25/2025 7:18 AM EDT [facility] NUCLEATED RBC % - AUTOMATED 0.0 0.0 - 0.2 % 02/25/2025 7:18 AM EDT [facility] Neutrophils Absolute 5.13 1.56 - 6.13 1000/uL 02/25/2025 7:18 AM EDT [facility] Lymphocytes Absolute 2.53 1.18 - 3.74 1000/uL 02/25/2025 7:18 AM EDT [facility] Monocytes Absolute 0.65 0.30 - 0.82 1000/uL 02/25/2025 7:18 AM EDT [facility] Eosinophils Absolute 0.23 0.04 - 0.36 1000/uL 02/25/2025 7:18 AM EDT [facility] Basophils Absolute 0.07 0.01 - 0.08 1000/uL 02/25/2025 7:18 AM EDT [facility] ABSOLUTE NUCLEATED RBC 0.00 0 - 0.01 k/ul 02/25/2025 7:18 AM EDT [facility] Blood Venous blood specimen / Unknown Venipuncture / Unknown 02/25/2025 5:22 AM EDT 02/25/2025 6:51 AM EDT us Amy Rowan MD LAB BLOOD ORDERABLES Fin al Result Performing Organization Address City/[facility]/ZIP Co de Phone Number [address] [phone] * Magnesium (02/25/2025 5:22 AM EDT) Only the most recent of2 resultswithin the time period is included. Magnesium 2.25 1.60 - 2.60 mg/dl 02/25/2025 7:31 AM EDT [facility] Blood Venous blood specimen / Unknown Venipuncture / Unknown 02/25/2025 5:22 AM EDT 02/25/2025 6:52 AM EDT us Amy Rowan MD LAB BLOOD ORDERABLES Fin al Result Performing Organization Address City/[facility]/ZIP Co de Phone Number [address] [phone] * (ABNORMAL) Basic metabolic panel (02/25/2025 5:22 AM EDT) Only the most recent of2 resultswithin the time period is included. Sodium 146(H) 136 - 145 mmol/L 02/25/2025 7:31 AM EDT [facility] Potassium 3.5 3.5 - 5.1 mmol/L 02/25/2025 7:31 AM EDT [facility] Chloride 107 98 - 107 mmol/L 02/25/2025 7:31 AM EDT [facility] Carbon Dioxide 27 20 - 31 mmol/L 02/25/2025 7:31 AM EDT [facility] Anion Gap 12 6 - 14 mmol/L 02/25/2025 7:31 AM EDT [facility] Glucose 125(H) 74 - 106 mg/dL 02/25/2025 7:31 AM EDT [facility] Urea Nitrogen 13 9 - 23 mg/dL 02/25/2025 7:31 AM EDT [facility] Creatinine 0.75 0.55 - 1.02 mg/dL 02/25/2025 7:31 AM EDT [facility] eGFR 85 >60 ml/min/1.7 3m2 02/25/2025 7:31 AM EDT [facility] CALCIUM 9.1 8.3 - 10.6 mg/dL 02/25/2025 7:31 AM EDT [facility] Blood Venous blood specimen / Unknown Venipuncture / Unknown 02/25/2025 5:22 AM EDT 02/25/2025 6:52 AM EDT Amy Rowan MD LAB BLOOD ORDERABLES Fin al Result [address] [phone] * CT Chest/Abd/Pelv Angio with and without (02/24/2025 4:45 PM EDT) Anatomical Region Laterality Modality Body N/A Computed Tomogra phy 02/24/2025 4:57 PM EDT Impressions 02/24/2025 5:05 PM EDT No acute abnormality or CT findings to explain reported symptoms. There is no evidence for pulmonary artery embolism. No thoracic or abdominal aortic dissection or aneurysm. A right breast bilobed low-density structure could be cystic. See above discussion. Please note that this report is generated with the use of voice manager of application development software and is prone to omission and word substitutions. Report Narrative 02/24/2025 5:[address] THORAX ABDOMEN AND PELVIS WITH CONTRAST INDICATION: Shortness breath, recent flight from [facility], rule out PE, positive dimer, now reporting CP, radiating to the back, rule out dissection as well... 74 yo female with PMH of HTN presents today for evaluation of generalized weakness for the past few weeks with associated dyspnea upon exertion and intermittent 3- 6/10 sharp upper abdominal pain that began about 2 weeks ago after flying back home from [facility]. Patient reports that she took her BP at home a few weeks ago, and found her diastolic BP to be in the 40's. Patient states that she attributed her low fatigue to hypotension, and decided to stop taking her prescribed amlodipine and chlorthalidone, and only take her carvedilol once a day instead of twice a day. Patient states that she has been doing this for about 8-9 days, and now she is hypertensive again. Patient reports that around 12:00pm today, she was walking up a minor incline, and felt SOB and dizzy, like she was going to lose consciousness. Patient did not lose consciousness, and reports that her symptoms improved rapidly with rest. Patient's SOB improves with rest... COMPARISON: None. TECHNIQUE: Axial MDCT of the thorax abdomen and pelvis. Axial, coronal, and sagittal reformations. Intravenous contrast: [address] angiography chest abdomen and pelvis FINDINGS: THORAX: MEDIASTINUM: Normal cardiac size. Minimal coronary calcification. No pericardial effusion. No thoracic aortic aneurysm or dissection with minimal arch calcification. No pulmonary artery embolic filling defect. LYMPH NODES: No pathologically enlarged lymph nodes. LUNGS: Clear. PLEURA: No pleural effusions. No thoracic compression deformity, anterior endplate multilevel spurring is right eccentric midthoracic levels. No destructive lesion. There is a bilobed inferior medial breast soft tissue density, Hounsfield units in of around 16-20, that might well be cystic change but would require physical examination/ follow-up cross-sectional imaging/mammography for better definition. ABDOMEN AND PELVIS: LIVER: Hepatic cystic change left at 14 mm. Small focal rounded intense enhancing high right lobe 6 mm focus could be an AV shunt lesion. There is no delayed imaging, study performed in the arterial phase. Liver is otherwise unremarkable. BILIARY: Gallbladder is unremarkable. No biliary ductal dilation. SPLEEN: Normal size. PANCREAS: Unremarkable. ADRENAL GLANDS: Unremarkable. KIDNEYS/URETERS: Unremarkable. BOWEL: No bowel obstruction. Appendix is unremarkable around axial image 420. There is moderate sigmoid greater than descending colonic diverticulosis. No diverticulitis or apparent wall thickening. A few transverse colon diverticula. PERITONEUM: No free fluid or free gas. URINARY BLADDER: Unremarkable. PELVIC ORGANS: Unremarkable. LYMPH NODES: No pathologically enlarged lymph nodes. VASCULATURE: Mild to moderate aortoiliac calcification without aneurysm or dissection, generous caliber to the iliac arterial system into common femoral arteries. BONES/SOFT TISSUES: Posterior instrumented metallic fusion L3-4. Disc space is well visible without solid incorporation of bone across across the disc space, and incomplete column present at the disc prosthesis but the study is designed to evaluate fusion. The hardware appears intact. Dorsal laminectomy same level. Moderate spondylosis L4-5 and L5-S1 with vacuum disc phenomena. No destructive lesion. Procedure Note Reilly Ochoa MD - 02/24/2025 CT THORAX ABDOMEN AND PELVIS WITH CONTRAST INDICATION: Shortness breath, recent flight from [place], rule out PE,positive dimer, now reporting CP, radiating to the back, rule outdissection as well... 74 yo female with PMH of HTN presents today for evaluation of generalizedweakness for the past few weeks with associated dyspnea upon exertion andintermittent 3-6/10 sharp upper abdominal pain that began about 2 weeksago after flying back home from [place]. Patient reports that she took herBP at home a few weeks ago, and found her diastolic BP to be in the 40's.Patient states that she attributed her low fatigue to hypotension, anddecided to stop taking her prescribed amlodipine and chlorthalidone, andonly take her carvedilol once a day instead of twice a day. Patient statesthat she has been doing this for about 8-9 days, and now she ishypertensive again. Patient reports that around 12:00pm today, she waswalking up a minor incline, and felt SOB and dizzy, like she was going tolose consciousness. Patient did not lose consciousness, and reports thather symptoms improved rapidly with rest. Patient's SOB improves withrest... COMPARISON: None. TECHNIQUE: Axial MDCT of the thorax abdomen and pelvis. Axial, coronal, and sagittalreformations. Intravenous contrast: [address] angiography chest abdomenand pelvis FINDINGS: THORAX: MEDIASTINUM: Normal cardiac size. Minimal coronary calcification. Nopericardial effusion. No thoracic aortic aneurysm or dissection withminimal arch calcification. No pulmonary artery embolic filling defect. LYMPH NODES: No pathologically enlarged lymph nodes. LUNGS: Clear. PLEURA: No pleural effusions. No thoracic compression deformity, anterior endplate multilevel spurringis right eccentric midthoracic levels. No destructive lesion. There is a bilobed inferior medial breast soft tissue density, Hounsfieldunits in of around 16-20, that might well be cystic change but wouldrequire physical examination/ follow-up cross-sectionalimaging/mammography for better definition. ABDOMEN AND PELVIS: LIVER: Hepatic cystic change left at 14 mm. Small focal rounded intenseenhancing high right lobe 6 mm focus could be an AV shunt lesion. There isno delayed imaging, study performed in the arterial phase. Liver isotherwise unremarkable. BILIARY: Gallbladder is unremarkable. No biliary ductal dilation. SPLEEN: Normal size. PANCREAS: Unremarkable. ADRENAL GLANDS: Unremarkable. KIDNEYS/URETERS: Unremarkable. BOWEL: No bowel obstruction. Appendix is unremarkable around axial . There is moderate sigmoid greater than descending colonic diverticulosis.No diverticulitis or apparent wall thickening. A few transverse colondiverticula. PERITONEUM: No free fluid or free gas. URINARY BLADDER: Unremarkable. PELVIC ORGANS: Unremarkable. LYMPH NODES: No pathologically enlarged lymph nodes. VASCULATURE: Mild to moderate aortoiliac calcification without aneurysm ordissection, generous caliber to the iliac arterial system into commonfemoral arteries. BONES/SOFT TISSUES: Posterior instrumented metallic fusion L3-4. Discspace is well visible without solid incorporation of bone across acrossthe disc space, and incomplete column present at the disc prosthesis butthe study is designed to evaluate fusion. The hardware appears intact.Dorsal laminectomy same level. Moderate spondylosis L4-5 and L5-S1 withvacuum disc phenomena. No destructive lesion. IMPRESSION: No acute abnormality or CT findings to explain reported symptoms. There isno evidence for pulmonary artery embolism. No thoracic or abdominal aorticdissection or aneurysm. A right breast bilobed low-density structure could be cystic. See abovediscussion. Please note that this report is generated with the use of voicetranscription software and is prone to omission and word substitutions. Report Keven Moseley MD IMG CT PROCEDURES Final Resu lt * TSH W/REFLEX FT4 (02/24/2025 4:22 PM EDT) THYROID STIM HORM 1.386 0.550 - 4.780 uIU/mL 02/24/2025 7:51 PM EDT [facility] Blood Venous blood specimen / Unknown Venipuncture / Unknown 02/24/2025 4:22 PM EDT 02/24/2025 4:25 PM EDT Aym Rowan MD LAB BLOOD ORDERABLES Fin al Result Performing Organization Address City/[facility] Co de Phone Number [address] [phone] * Troponin I (02/24/2025 4:22 PM EDT) Only the most recent of2 resultswithin the time period is included. Troponin-I 5 <=45 ng/L 02/24/2025 4:45 PM EDT [facility] Comment:Please note unit margaret nge. Blood Venous blood specimen / Unknown Venipuncture / Unknown 02/24/2025 4:22 PM EDT 02/24/2025 4:25 PM EDT Keven Moseley MD LAB BLOOD ORDERABLES Final R esult Performing Organization Address City/[facility]/ZIP Co de Phone Number [address] [phone] * CK (02/24/2025 4:22 PM EDT) Pathologist [facility] [place] Creatine Kinase 104 34 - 145 U/L 02/24/2025 7:48 PM EDT [facility] Blood Venous blood specimen / Unknown Venipuncture / Unknown 02/24/2025 4:22 PM EDT 02/24/2025 4:25 PM EDT Amy Rowan MD LAB BLOOD ORDERABLES Fin al Result [address] [phone] * (ABNORMAL) EKG 12 lead (02/24/2025 4:02 PM EDT) Only the most recent of2 resultswithin the time period is included. Pathologist [facility] [place] MUSE DIAGNOSIS CLASS Abnormal( A) [facility] MUSE VENTRICULAR RATE 60 BPM [facility] MUSE ATRIAL RATE 60 BPM [facility] MUSE IN INTERVAL 176 ms [facility] MUSE QRS DURATION 142 ms [facility] MUSE QT INTERVAL 432 ms [facility] MUSE QTC CALCULATION 432 ms [facility] MUSE P AXIS 59 degrees [facility] MUSE R AXIS 100 degrees [facility] MUSE T AXIS 25 degrees [facility] 02/24/2025 4:02 PM EDT 04/02/2025 6:09 AM EDT Narrative [facility] - 04/02/2025 6:09 AM EDT NORMAL SINUS RHYTHM POSSIBLE LEFT ATRIAL ENLARGEMENT RIGHT BUNDLE BRANCH BLOCK ABNORMAL ECG WHEN COMPARED WITH ECG OF 24-Feb-2025 13:49, (UNCONFIRMED) CRITERIA FOR SEPTAL INFARCT ARE NO LONGER PRESENT Confirmed by Cong Moser ([id number]) on 04/02/2025 6:09:15 AM Procedure Note Cong Moser MD - 04/02/2025 NORMAL SINUS RHYTHM POSSIBLE LEFT ATRIAL ENLARGEMENT RIGHT BUNDLE BRANCH BLOCK ABNORMAL ECG WHEN COMPARED WITH ECG OF 24-Feb-2025 13:49, (UNCONFIRMED) CRITERIA FOR SEPTAL INFARCT ARE NO LONGER PRESENT Confirmed by Cong Moser ([id number]) on 04/02/2025 6:09:15 AM us Keven Moseley MD ECG ORDERABLES Final Result [facility] * Urinalysis with Reflex microscopic and culture (02/24/2025 4:01 PM EDT) Color, Urine Colorless Colorless, Yellow, Dark Yellow 02/24/2025 4:14 PM EDT [facility] Appearance, Urine Clear Clear 02/24/2025 4:14 PM EDT [facility] Specific [place], Urine 1.009 1.002 - 1.030 02/24/2025 4:14 PM EDT [facility] pH, Urine 5.5 5.0 - 7.0 02/24/2025 4:14 PM EDT [facility] Leukocyte Esterase, Urine Negative 0 , Negative marialuisa/uL 02/24/2025 4:14 PM EDT [facility] Nitrites, Urine Negative Negative 02/24/2025 4:14 PM EDT [facility] Protein, Urine Negative Negative mg/dL 02/24/2025 4:14 PM EDT [facility] Glucose, Urine Normal Normal mg/dL 02/24/2025 4:14 PM EDT [facility] Ketone, Urine Negative Negative mg/dL 02/24/2025 4:14 PM EDT [facility] Urobilinogen, Urine Normal 0-1.0 mg/dl mg/dL 02/24/2025 4:14 PM EDT [facility] Bilirubin, Urine Negative Negative mg/dL 02/24/2025 4:14 PM EDT [facility] Hemoglobin, Urine Negative Negative 02/24/2025 4:14 PM EDT [facility] Urine Urine specimen obtained by clean catch procedure / Unknown Non-blood Collection / Unknown 02/24/2025 4:01 PM EDT 02/24/2025 4:05 PM EDT us Keven Moseley MD LAB URINE ORDERABLES Final R esult Performing Organization Address City/[facility]/ZIP Co de Phone Number [address] [phone] * Lipase (02/24/2025 3:40 PM EDT) Lipase 42.0 12.0 - 53.0 U/L 02/24/2025 4:06 PM EDT [facility] Blood Venous blood specimen / Unknown Venipuncture / Unknown 02/24/2025 3:40 PM EDT 02/24/2025 3:43 PM EDT us Keven Moseley MD LAB BLOOD ORDERABLES Final R esult Performing Organization Address City/[facility]/ZIP Co de Phone Number [address] [phone] * Hepatic function panel (02/24/2025 3:40 PM EDT) ALKALINE PHOSPHATASE 66.0 46.0 - 116.0 U/L 02/24/2025 4:06 PM EDT [facility] ALT/SGPT 21.0 7.0 - 40.0 U/L 02/24/2025 4:06 PM EDT [facility] AST/SGOT 20 13 - 40 U/L 02/24/2025 4:06 PM EDT [facility] Total Bilirubin 0.6 0.2 - 1.1 mg/dL 02/24/2025 4:06 PM EDT [facility] Bilirubin-Direct 0.2 <=0.3 mg/dL 02/24/2025 4:06 PM EDT [facility] Bilirubin-Indire ct 0.4 0.0 - 1.0 mg/dL 02/24/2025 4:06 PM EDT [facility] Total Protein 6.3 5.7 - 8.2 g/dL 02/24/2025 4:06 PM EDT [facility] Albumin 3.6 3.4 - 5.0 g/dL 02/24/2025 4:06 PM EDT [facility] Globulin 2.7 2.0 - 3.9 g/dL 02/24/2025 4:06 PM EDT [facility] A/G Ratio 1.3 1.2 - 2.4 ug/mL 02/24/2025 4:06 PM EDT [facility] Blood Venous blood specimen / Unknown Venipuncture / Unknown 02/24/2025 3:40 PM EDT 02/24/2025 3:43 PM EDT us Keven Moseley MD LAB BLOOD ORDERABLES Final R esult [address] [phone] * XR chest 1 view portable (02/24/2025 2:27 PM EDT) Anatomical Region Laterality Modality Body N/A Digital Radiogra phy 02/24/2025 2:30 PM EDT Impressions 02/24/2025 2:30 PM EDT No acute cardiopulmonary process. Report Narrative 02/24/2025 2:30 PM EDT XR CHEST 1 VIEW PORTABLE HISTORY: CHEST PAIN COMPARISON: Chest x-ray November 06, 2026 FINDINGS: Clear lung muniz. Normal cardiomediastinal silhouette. No vascular congestion. No pleural effusion. Procedure Note Reilly Ochoa MD - 02/24/2025 XR CHEST 1 VIEW PORTABLE HISTORY: CHEST PAIN COMPARISON: Chest x-ray November 06, 2026 FINDINGS: Clear lung muniz. Normal cardiomediastinal silhouette. Novascular congestion. No pleural effusion. IMPRESSION: No acute cardiopulmonary process. Report us Keven Moseley MD IMG XR PROCEDURES Final Resu lt * TICK BORNE DISEASE PANEL 4M(REFLAB) (02/24/2025 2:18 PM EDT) EHRLICHIA CHAFFEENSIS DNA REAL TIME PCR NOT DETECTED NOT DETECTED 02/27/2025 2:00 PM EDT [facility] Comment: This test was developed and its analytical performance characteristics have been determined by [employer] [facility]. It has not been cleared or approved by the FDA. This assay has been validated pursuant to the CLIA regulations and is used for clinical purposes. ANAP NOT DETECTED NOT DETECTED 02/27/2025 2:00 PM EDT [facility] Comment: This test was developed and its analytical performance characteristics have been determined by [employer] [facility]. It has not been cleared or approved by the FDA. This assay has been validated pursuant to the CLIA regulations and is used for clinical purposes. BABMICRO NOT DETECTED NOT DETECTED 02/27/2025 2:00 PM EDT [facility] Comment: This test was developed and its analytical performance characteristics have been determined by [facility]. It has not been cleared or approved by the FDA. This assay has been validated pursuant to the CLIA regulations and is used for clinical purposes. BORRSPP NOT DETECTED NOT DETECTED 02/27/2025 2:00 PM EDT [facility] Comment: The diagnostic value of a negative Borrelia species PCR result from whole blood has not been established. A negative result does not exclude Borrelia infection because the concentration of the organism in blood tends to be low or non-existent in patients with borreliosis. This test was developed and its analytical performance characteristics have been determined by [facility]. It has not been cleared or approved by the FDA. This assay has been validated pursuant to the CLIA regulations and is used for clinical purposes. For additional information, please refer to https://education.CNZZ.Lovely/faq/qcy604 (This link is being provided for informational/ educational purposes only.) LYME AB, SCREEN < OR = 0.90 < OR = 0.90 index 02/27/2025 2:00 PM EDT [facility] Comment: Index Interpretation ----- < OR = 0.90 NEGATIVE 0.91-1.09 EQUIVOCAL > OR = 1.10 POSITIVE This assay measures Lyme disease (Borrelia burgdorferi) IgG plus IgM antibodies; it does not distinguish results that are both IgG and IgM positive from results that are either IgG or IgM positive. As recommended by the Centers for Disease Control and Prevention (CDC), all samples with positive or equivocal results in this screening assay will be tested using separate supplemental Lyme IgG and IgM immunoassays. Positive or equivocal screening assay results should not be interpreted as truly positive until verified as such using the supplemental assays. Screening and/or supplemental tests for Lyme disease antibodies may be falsely negative in early stages of Lyme disease, including the period when erythema migrans is apparent. These assays may be falsely positive in patients with other spirochetal diseases (e.g., syphilis) or infectious mononucleosis. Blood Venous blood specimen / Unknown Venipuncture / Unknown 02/24/2025 2:18 PM EDT 02/24/2025 2:26 PM EDT Narrative [facility] - 02/27/2025 2:00 PM EDT Performing Organization Information: Site ID: [id number] Name: [facility] Address: [address] [place] [phone] Director: FAUSTINA HANSON MD Keven Moseley MD LAB BLOOD ORDERABLES Final R esult [facility] [address] [place] [phone] * (ABNORMAL) D-dimer, quantitative (02/24/2025 2:18 PM EDT) [facility] DIMER (QUANTITATIVE) 0.72(H) <0.50 mg/L FEU 02/24/2025 2:38 PM EDT [facility] Comment:DVT/PE EVALUATION: I n conjunction with a low clinical probability assessment based on Wells' criteria, a result of <0.5 mg/L FEU excludes deep vein thrombosis (DVT) and pulmonary embolism (PE) with high sensitivity. Blood Venous blood specimen / Unknown Venipuncture / Unknown 02/24/2025 2:18 PM EDT 02/24/2025 2:25 PM EDT us Keven Moseley MD LAB BLOOD ORDERABLES Final R esult Performing Organization Address [facility]/ZIP Co de Phone Number [address] [phone] * (ABNORMAL) B-type natriuretic peptide (02/24/2025 2:18 PM EDT) Brain Natriuretic Peptide 197.0(H) <100.0 pg/mL 02/24/2025 2:57 PM EDT [facility] Blood Venous blood specimen / Unknown Venipuncture / Unknown 02/24/2025 2:18 PM EDT 02/24/2025 2:26 PM EDT Narrative [facility] - 02/24/2025 2:57 PM EDT It should be noted that normal BNP levels in healthy individuals without CHF increase with age. Based on the outcomes of clinical trials, as a Rule Out Test for patients without CHF, 100 pg/ml can be used as a decision threshold with a clinical specificity of 97.4%. In clinically confirmed heart failure, 72.6% of the patients had elevations of BNP greater than 100 pg/ml. Keven Moseley MD LAB BLOOD ORDERABLES Final [facility] Performing Organization Address [facility] Co de Phone Number [address] [phone] * Mammogram screening tomosynthesis bilateral (12/29/2024 9:02 AM EDT) Anatomical Region Laterality Modality Breast Bilateral Mammography Impressions 12/30/2024 7:26 AM EDT * No evidence of malignancy with benign findings. RECOMMENDATIONS Bilateral * Annual screening mammography. ADMINISTRATIVE: A layperson's letter was given or mailed to your patient indicating the recommendations for follow-up. A negative imaging exam does not preclude additional investigation in the presence of physical findings. OVERALL ASSESSMENT CATEGORY BI-RADS-2: Benign. The [employer] recommends annual screening mammography beginning at age 40 for women with average risk of breast cancer. ELECTRONICALLY SIGNED: Farhad Venegas MD on 12/30/2024 at 07:13:21 AM Narrative 12/30/2024 7:26 AM EDT BI MAMMOGRAM SCREENING TOMOSYNTHESIS BILATERAL: 12/29/2024. BI-RADS: 2 CLINICAL: 74-year old female. No personal or known first-degree family history of breast cancer. The patient presents for routine screening mammogram. PRIOR EXAMS Mammogram(s): 11/28/2023, 11/10/2022. Eight Other Exams on 11/03/2021, 10/07/2020, 06/12/2019, 06/08/2018, 06/01/2018, 05/31/2017, 12/08/2015. MAMMOGRAPHY TECHNIQUE: Digital mammography was performed using a [employer] digital mammography unit. The exam was interpreted on a specialized work station with an integrated computer-aided detection (CAD) system. The exam includes 3D tomosynthesis images as well as synthetic 2D images. CC and MLO views performed, with additional images as needed for full coverage. DENSITY B. There are scattered areas of fibroglandular density. MAMMOGRAPHY FINDINGS Bilateral: Benign-appearing masses noted. No suspicious change on comparison. Procedure Note Farhad Venegas MD - 12/30/2024 BI MAMMOGRAM SCREENING TOMOSYNTHESIS BILATERAL: 12/29/2024. BI-RADS: 2 CLINICAL: 74-year old female. No personal or known first-degree familyhistory of breast cancer. The patient presents for routine screeningmammogram. PRIOR EXAMS Mammogram(s): 11/28/2023, 11/10/2022. Eight Other Exams on11/03/2021, 10/07/2020, 06/12/2019, 06/08/2018, 06/01/2018, 05/31/2017,12/08/2015. MAMMOGRAPHY TECHNIQUE: Digital mammography was performed using a [employer] digital mammography unit. The exam was interpreted on aspecialized work station with an integrated computer-aided detection (CAD)system. The exam includes 3D tomosynthesis images as well as synthetic 2Dimages. CC and MLO views performed, with additional images as needed forfull coverage. DENSITY B. There are scattered areas of fibroglandular density. MAMMOGRAPHY FINDINGS Bilateral: Benign-appearing masses noted. No suspicious change oncomparison. IMPRESSION: * No evidence of malignancy with benign findings. RECOMMENDATIONS Bilateral * Annual screening mammography. ADMINISTRATIVE: A layperson's letter was given or mailed to your patientindicating the recommendations for follow-up. A negative imaging exam doesnot preclude additional investigation in the presence of physicalfindings. OVERALL ASSESSMENT CATEGORY BI-RADS-2: Benign. The [employer] recommends annual screeningmammography beginning at age 40 for women with average risk of breastcancer. ELECTRONICALLY SIGNED: Farhad Venegas MD on 12/30/2024 at 07:13:21 AM Aram Allen MD IMG BI PROCEDURES Final Result * DEXA bone density axial skeleton w vfa (01/25/2024 1:52 PM EDT) Anatomical Region Laterality Modality Spine N/A Other 01/25/2024 2:23 PM EDT Impressions 01/25/2024 2:29 PM EDT 1. Normal bone mineral density of the lumbar spine and left hip. 2. No evidence of compression fracture on limited lateral view of thoracolumbar spine. Report Narrative 01/25/2024 2:29 PM EDT INDICATION: Evaluate for osteopenia. TECHNIQUE: Dual-energy X-ray absorptiometry (DXA) with vertebral fracture assessment utilizing the Hologic Horizon C. COMPARISON: Previous: 10/07/2020. FINDINGS: Lumbar spine: Region: L1, L2 Total BMD: 1.214 g/cm2 T-score: 2.1 BMD change vs. Previous: +3.4% WHO classification: Normal Left hip: Neck: BMD: 0.884 g/cm2; T-score: 0.3 Total: BMD: 1.064 g/cm2; T-score: 1.0 BMD change vs. Previous: -0.5% WHO classification: Normal Overall WHO classification based on lowest T-score: Normal Lateral Spine: No definite evidence of fracture. Prior spinal fusion at L3-L4 with bilateral pedicle screws and intervertebral disc spacer at L3-L4. Additional comments: FRAX not reported because all T-scores are at or above - 1.0. For additional information on FRAX: International osteoporosis foundation: www.iofbonehealth.org National Osteoporosis foundation: www.nof.org WHO collaborating Center for Metabolic Bone Diseases: www.shef.ac.uk/FRAX DEFINITION OF OSTEOPOROSIS: The definition of osteopenia as defined by the World Health Organization is a T- score between -1 and -2.5 whereas osteoporosis is defined as a T-score less than -2.5. FRACTURE RISK BASED ON BONE DENSITY: In post menopausal females the relative risk of fracture approximately doubles (2X) for each standard deviation reduction in bone mineral density at any site (each -1.0 in T-score). Procedure Note Farhad Venegas MD - 01/25/2024 INDICATION: Evaluate for osteopenia. TECHNIQUE: Dual-energy X-ray absorptiometry (DXA) with vertebral fractureassessment utilizing the LibreDigital C. COMPARISON: Previous: 10/07/2020. FINDINGS: Lumbar spine: Region: L1, L2 Total BMD: 1.214 g/cm2 T-score: 2.1 BMD change vs. Previous: +3.4% WHO classification: Normal Left hip: Neck: BMD: 0.884 g/cm2; T-score: 0.3 Total: BMD: 1.064 g/cm2; T-score: 1.0 BMD change vs. Previous: -0.5% WHO classification: Normal Overall WHO classification based on lowest T-score: Normal Lateral Spine: No definite evidence of fracture. Prior spinal fusion atL3-L4 with bilateral pedicle screws and intervertebral disc spacer atL3-L4. Additional comments: FRAX not reported because all T-scores are at orabove -1.0. For additional information on FRAX: International osteoporosis foundation: www.iofbonehealth.org National Osteoporosis foundation: www.nof.org WHO collaborating Center for Metabolic Bone Diseases:www.shef.ac.uk/FRAX DEFINITION OF OSTEOPOROSIS: The definition of osteopenia as defined by the World Health Organizationis a T- score between -1 and -2.5 whereas osteoporosis is defined as aT-score less than -2.5. FRACTURE RISK BASED ON BONE DENSITY: In post menopausal females the relative risk of fracture approximatelydoubles (2X) for each standard deviation reduction in bone mineral densityat any site (each - 1.0 in T-score). IMPRESSION: 1. Normal bone mineral density of the lumbar spine and left hip. 2. No evidence of compression fracture on limited lateral view ofthoracolumbar spine. Report Aram Allen MD IMG DXA PROCEDURES Final Resul t from Last 3 Months or Most Recently Relevant to Health Maintenance Insurance MEDICARE PART A AND B BCBS MEDEX/BCBS OOS SUPPLEMENT Advance Directives * Full Code (Latest Code Status on File) Date Activated Date Inactivated Comments 02/24/2025 7:29 PM 02/25/2025 7:50 PM Care Teams Unemployment Claims Adjudicator Relationship Specialty Start Date End Date Aram Allen MD [address] [place] [address] PCP - General Internal Medicine 12/29/24 Alonzo Rosa PA [address] [place] [address] Referring Physician Manager Dialysis 03/01/25
--- OUTSIDE RECORDS SUMMARY | 2025-04-22 17:16 | XMS_ITS | Encounter Summary ---
Author Organization [facility] Address [address] [place] [address] Care Team Providers Care Neurology Technician Name Role Phone Alejandro Cyndee Primary Care Provider Reason for Visit * Reason Onset Date Comments medications 04/09/2025 Scheduled on 04/24/2025 R TKR in [place]; pt was instructed by their pre op RN to call surgeon's office so she can discuss the current medications she's on.. can't wait until 04/19/2025 telehealth per pt. Encounter Details Date Type Department Care Team (Late st Contact Info) Description 04/09/2025 Telephone [facility] [address] [facility] [address] [place] [address] Ingrid Tuttle PA [address] [place] [id number] medications (Scheduled on 04/24/2025 R TKR in [place]; pt was instructed by their pre op RN to call surgeon's office so she can discuss the current medications she's on.. can't wait until 04/19/2025 telehealth per pt. ) Social History Tobacco Use Types Packs/Day Years Used Date Smoking Tobacco: Former Cigarettes 0.5 20.6 0 07/25/1967 - 02/23/1988 Alcohol Use Standard Drinks/Week Comments Yes 1 (1 standard drink = 0.6 oz pur e alcohol) 2-3X WEEK Comments Unknown Sex and Gender Information Value Date Recorded Sex Assigned at Female 09/10/2024 12:52 PM EST Legal Sex Female 2:04 PM EST Gender Identity Female 09/10/2024 12:52 PM EST Sexual Orientation Straight 09/10/2024 12 :52 PM EST documented as of this encounter Plan of Treatment Upcoming Encounters Date Type Department Care Team (Late st Contact Info) Description 04/24/2025 10:00 AM EDT Office Visit [facility] Scheduling [address] [facility] [address] [place] [address] Farhad Raphael MD [address] [place] [address] with Physician 05/22/2025 9:00 AM EDT Office Visit [facility] Drier Tender Naphthalene [address] [facility] [address] [place] [address] Ingrid Tuttle PA [address] [place] [address] In Person with Physician Eligibility Consultant documented as of this encounter Visit Diagnoses Not on filedocumented in this encounter Care Teams Neurology Technician Relationship Specialty Start Date End Date Cyndee Allen [address] [place] [address] PCP - General Pediatric Medicine 09/10/24 documented as of this encounter
--- OUTSIDE RECORDS SUMMARY | 2025-04-22 17:16 | XMS_ITS | Clinical Summary ---
Author Organization [facility] Address [address] [address] [place] [address] Care Team Providers Care Solar Project Engineer Name Role Phone Aram Allen MD Primary Care Provider Allergies Active Allergy Reactions Criticality Noted Date Comments Pollen Extracts 09/01/2021 Other reaction(s): Other (See Comments) Medications carvedilol (Coreg) 25 mg tablet Take 25 mg by mouth with breakfast and with evening meal. 2 Active cholecalciferol , vitamin D3, (Vitamin D-3) 25 MCG (1000 UT) tablet Take 1,000 Units by mouth in the morning. Active estradiol (Vagifem) 10 mcg tablet vaginal tablet Insert 10 mcg into the vagina 2 (two) times a week. 2 Active lisinopriL-hydr ochlorothiazide 20-12.5 mg tablet Take 1 tablet by mouth in the morning and at bedtime. 8 Active magnesium oxide 400 mg magnesium capsule Take 400 mg by mouth in the morning. 5 Active LORazepam (Ativan) 0.5 mg tablet Take 0.5 mg by mouth every 6 (six) hours if needed for anxiety. Active cyclobenzaprine (Flexeril) 10 mg tabletIndicatio ns:Lumbar foraminal stenosis Take 1 tablet (10 mg) by mouth every 8 (eight) hours if needed for muscle spasms for up to 10 days. 12 tablet 05/13/2022 10:15 AM EDT 2 Active docusate sodium (Colace) 100 mg capsuleIndicati ons:Lumbar foraminal stenosis Take 1 capsule (100 mg) by mouth in the morning and at bedtime. 60 capsule 10/20/202 2 Active gabapentin (Neurontin) 100 mg capsule Take 100 mg by mouth in the morning and at bedtime. Active Active Problems Problem Noted Date Diagnosed Date Lumbar foraminal stenosis 05/11/2022 GERD (gastroesophageal reflux disease) HTN (hypertension) 05/04/2022 HLD (hyperlipidemia) 05/04/2022 Spinal stenosis 05/04/2022 Post-dural puncture headache 05/04/2022 Overview (05/04/2022): After receiving spinal anesthesia for myelogram. Was treated with epidural blood patch Decreased functional mobility Social History Tobacco Use Types Packs/Day Years Used Date Smoking Tobacco: Former Cigarettes Q uit: 1987 Smokeless Tobacco: Never Tobacco Cessation:Counseling Given: Not Answered Alcohol Use Standard Drinks/Week Comments Yes 3 (1 standard drink = 0.6 oz pur e alcohol) Socially PHQ-2 Answer Date Recorded Patient Health Questionnaire-2 Score 0 06/23/2022 Comments Unknown Sex and Gender Information Value Date Recorded Sex Assigned at Female 03/08/2022 5:34 PM EDT Legal Sex Female 2:49 PM EDT Gender Identity Female 03/08/2022 5:34 PM EDT Sexual Orientation Straight 03/08/2022 5: 34 PM EDT Last Filed Vital Signs Vital Sign Reading Time Taken Comments Blood Pressure 142/78 06/23/2022 1:22 PM EST Pulse 72 06/23/2022 1:22 PM EST Temperature 36.8 C (98.2 F) 05/13/2022 7:22 AM EDT Respiratory Rate 16 05/13/2022 7:22 AM EDT Oxygen Saturation 97% 05/13/2022 7:33 AM EDT Inhaled Oxygen Concentration - - Weight 83 kg (183 lb) 06/23/2022 1:22 PM EST Height 171.5 cm (5' 7.52 ) 06/23/2022 1:22 PM ES T Body Mass Index 28.22 06/23/2022 1:22 PM EST Plan of Treatment Health Maintenance Due Date Last Done Comments CT Colonography 1952 Colonoscopy 1952 FOBT 1952 Lipid Panel 1952 Sigmoidoscopy 1952 Diabetes Screening 1970 Hepatitis C Screening 1970 DTaP/Tdap/Td Vaccines (1 - Tdap) 1971 Zoster Vaccines (1 of 2) 2002 Medicare Annual Wellness (AWV) 03/25/2018 Pneumococcal Vaccine: 50+ Years (2 of 2 - PCV) 07/02/2021 07/02/2020 FIT 2023 2022 Depression Screening 07/25/2024 06/23/2022 COVID-19 Vaccine ( season) 2025 06/11/2022, 12/16/2021, 06/01/2021, Additional history exists Influenza Vaccine (#1) 2025 8, 04/08/2017, 05/06/2015, Additional history exists Colorectal Cancer Screening 2025 FIT-DNA 2025 2022, 2022 Mammogram 12/29/2026 12/29/2024, 0601/2025, 11/28/2023, Additional history exists Bone Density Scan Completed 01/25/2024, 10/07/2020 HIB Vaccines Aged Out No longer eligi ble based on patient's age to complete this topic HPV Vaccines Aged Out No longer eligi ble based on patient's age to complete this topic Hepatitis A Vaccines Aged Out No long er eligible based on patient's age to complete this topic Hepatitis B Vaccines Aged Out No long er eligible based on patient's age to complete this topic IPV Vaccines Aged Out No longer eligi ble based on patient's age to complete this topic Meningococcal B Vaccine Aged Out No l onger eligible based on patient's age to complete this topic Meningococcal Vaccine Aged Out No shamar mayra eligible based on patient's age to complete this topic Rotavirus Vaccines Aged Out No longer eligible based on patient's age to complete this topic Medical Devices Implanted Type Area Rf Design Engineer Device Identifier Shelf Expiration Date Model / Serial / Lot Block Attrax Scaffold Lg - [id number] Implanted:Qty : 1 on 05/11/2022 at [facility] Implant N/A: Back [employer] 06/07/2026 [id number] / / [id number] Reline Screw 4.5 X 50 Implanted:Qty : 2 on 05/11/2022 by Julio César Haddad MD at [facility] Screw N/A: Back [employer] 05/12/2024 [id number] / U / Cage Cohere Tlif-O [id number] 4d - [id number] Implanted:Qty : 1 on 05/11/2022 at [facility] Spinal Hardware N/A: Back [employer] 01/12/2026 [id number] / / [id number] Screw Lock Reline - Iglesias - [id number] Implanted:Qty : 4 on 05/11/2022 by Julio César Haddad MD at [facility] Spinal Hardware N/A: Back [employer] 05/12/2024 [id number] / U / Kirk 45mm Prebent Reline - Iglesias - [id number] Implanted:Qty : 2 on 05/11/2022 by Julio César Haddad MD at [facility] Spinal Hardware N/A: Back [employer] 05/12/2024 [id number] / U / Screw Reline-O Traction 5.5x50 - Iglesias - [id number] Implanted:Qty : 2 on 05/11/2022 by Julio César Haddad MD at [facility] Spinal Hardware N/A: Back [employer] 05/12/2024 [id number] / U / Insurance [facility] Advance Directives * Full Code (Latest Code Status on File) Date Activated Date Inactivated Comments 05/11/2022 10:11 AM 05/13/2022 1:51 PM Healthcare Agents on File Name Relationship Healthcare [facility] Communication Zurdo Newsome Spouse Health Care Agent Care Teams Solar Project Engineer Relationship Specialty Start Date End Date Aram Allen MD [address] [place] [address] PCP - General Mine Analyst 03/11/22
--- OUTSIDE RECORDS SUMMARY | 2025-04-22 17:16 | XMS_ITS | Encounter Summary ---
Author Organization [facility] Address [address] [place] [address] Phone Care Team Providers Care Teller Vault Name Role Phone Unknown, Unknown Primary Care Provider Aram Jacobs MD Primary Care Provider [phone] Self-Referred, Patient Unavailable Unavailab le Reason for Referral * Physical Therapy (Elective) - Closed Specialty Diagnoses / Procedures Referred By Contac t Referred To Contact Physical Therapy Diagnoses Bulging of thoracic intervertebral disc Aram Allen MD Phone: tel: fax: [facility] [address] [place] [address] Phone: tel: fax: Referral ID Status Reason Start Date Expiration Date Visits Re quested Visits Authorized [id number] Closed 02/06/2018 02/06/2019 1 1 Encounter Details Date Type Department Care Team (Latest Contact Info) Description 02/06/2018 Transcribe Orders [facility] [address] [place] [address] Aram Allen MD [address] [place] [address] Bulging of thoracic intervertebral disc (Primary Dx) Social History Tobacco Use Types [...] 05/13/2025 10:45 AM EDT Office Visit [facility] [address] [place] [address] Aram Allen MD [address] [place] [address] Adri Grimes, PT [address] [facility] [place] [address] 05/15/2025 10:45 AM EDT Office Visit [facility] [address] [place] [address] Aram Allen MD [address] [place] [address] Adri Grimes, PT [address] [facility] [place] [address] 05/20/2025 10:45 AM EDT Office Visit [facility] [address] [place] [address] Aram Allen MD [address] [place] [address] Adri Grimes, PT [address] [facility] [place] [address] 05/22/2025 10:45 AM EDT Office Visit [facility] [address] [place], [place] [address] Aram Allen MD [address] [place] [address] Adri Grimes, PT [address] [facility] [place] [address] [email or web address] 05/27/2025 2:30 PM EST Office Visit [facility] [address] [place], [place] [address] Aram Allen MD [address] [place] [address] Adri Grimes, PT [address] [facility] [place] [address] 05/29/2025 2:30 PM EST [facility] Visit [facility] [address] [facility] [place], [place] [address] Aram Allen MD [address] [place] [address] Adri Grimes, PT [address] [facility] [place] [address] [email or web address] 06/03/2025 10:45 AM EST Office Visit [facility] [place], [place] [address] Aram Allen MD [address] [place] [address] Adri Grimes, PT [address] [facility] [place] [address] [email or web address] documented as of this encounter Procedures Procedure Name Priority Date/Time Associated Diagnosis Comments AMB REFERRAL TO N PHYSICAL THERAPY Routine 03/14/2018 1:38 PM EDT Bulging of thoracic intervertebral disc documented in this encounter Results * Ambulatory referral to [facility] (03/14/2018 1:38 PM EDT) us Provider Not In System PhD AMB [facility] REFERRALS Fin al Result documented in this encounter Visit Diagnoses Diagnosis Bulging of thoracic intervertebral disc- Primary documented in this encounter Care Teams Teller Vault Relationship Specialty Start Date End Date Unknown, Unknown, MD PCP - General 11/26/16 06/12/18 Aram Allen MD [address] [place] [address] PCP - General Internal Medicine 06/13/18 Self-Referred, Patient 06/13/18 documented as of this encounter Additional Source Comments The information contained in this document represents components of the legal health record. It is not the complete legal health record.[facility]
--- OUTSIDE RECORDS SUMMARY | 2025-04-22 17:16 | XMS_ITS | Encounter Summary ---
Author Organization [facility] Address [address] [place], [place] [address] Care Team Providers Care Prison Guard Name Role Phone Aram Allen MD Primary Care Provider [phone] Aram Allen MD Primary Care Provider Alonzo Rosa PA Unavailable [phone] Encounter Details Date Type Department Care Team (Latest Contact Info) Description 06/27/2024 Lab Requisition [facility] [address] [place] [address] Jose Gillis MD [address] [place] [address] [address] [place] [address] Diverticulosis of large intestine without perforation or abscess without bleeding; Other hemorrhoids; Benign neoplasm of ascending colon; Personal history of colon polyps, unspecified Social History Tobacco Use Types Packs/Day Years Used Date Smoking Tobacco: Former Smokeless Tobacco: Never Alcohol Use Standard Drinks/Week Comments Yes 0 (1 standard drink = 0.6 oz pur e alcohol) Comments No Sex and Gender Information Value Date Recorded Sex Assigned at Female 03/05/2021 4:07 PM EDT Legal Sex Female 9:35 PM EDT Gender Identity Female 03/05/2021 4:07 PM EDT Sexual Orientation Straight 03/05/2021 4: 07 PM EDT documented as of this encounter Plan of Treatment Upcoming Encounters Date Type Department Care Team (Late st Contact Info) Description 04/25/2025 6:00 AM EDT Appointment [facility] [address] [place] [address] Alon Ibarra, PT documented as of this encounter Procedures Procedure Name Priority Date/Time Associated Diagnosis Comments SURGICAL PATHOLOGY EXAM Routine 06/26/2024 12:41 PM EST Diverticulosis of large intestine without perforation or abscess without bleeding Other hemorrhoids Benign neoplasm of ascending colon Personal history of colon polyps, unspecified documented in this encounter Results * Surgical Pathology Exam (06/26/2024 12:41 PM EST) Case Report Surgical Pathology Case: [id number] Authorizing Provider: Jose Gillis MD Collected: 06/26/2024 1241 Ordering Location: [facility] Received: 06/27/2024 0510 Laboratory Pathologist: Logan Martinez MD Specimen: Ascending Colon 06/27/2024 11:37 AM [facility] Final Diagnosis Ascending colon polypectomy: Tubular adenoma. 06/27/2024 11:37 AM [facility] at 1137 EST Images 06/27/2024 11:37 AM [facility] Clinical Information Personal History of Colonic Polyps One Polyp in the Ascending Colon R/O Dysplasia 06/27/2024 11:37 AM [facility] Gross Description The specimen is received in formalin labeled ascending colon and consists of a 0.4 cm in greatest dimension varela, irregular soft tissue which is entirely submitted in one cassette labeled A1. Gross Evaluation performed by: CHARO Raphael(ASCP) 06/27/2024 11:37 AM [facility] Disclaimer By his/her signature above, the physician certifies that he/she personally conducted a microscopic examination (gross only exam if so stated) of the described specimen(s) and rendered or confirmed the diagnosis(es) related thereto. 06/27/2024 11:37 AM [facility] Tissue 06/26/2024 12:4 1 PM EST 06/27/2024 5:10 AM EST us Jose Gillis MD LAB PATHOLOGY ORDERABLES Adriana carmona Result [address] [id number] documented in this encounter Visit Diagnoses Diagnosis Diverticulosis of large intestine without perforation or abscess without bleeding Other hemorrhoids Benign neoplasm of ascending colon Personal history of colon polyps, unspecified documented in this encounter Care Teams Prison Guard Relationship Specialty Start Date End Date Aram Allen MD [address] [place] [address] PCP - General Internal Medicine 05/30/24 12/28/24 Aram Allen MD [address] [place] [address] PCP - General Internal Medicine 12/29/24 Alonzo Rosa PA [address] [place] [address] Referring Physician Machine Stripper 03/01/25 documented as of this encounter
--- OUTSIDE RECORDS SUMMARY | 2025-04-22 17:16 | XMS_ITS | Encounter Summary ---
Author Organization [facility] Address [address] [facility] [address] [place] [address] Phone Care Team Providers Care Sap Business Intelligence Consultant Name Role Phone Aram Allen MD Primary Care Provider [phone] Self-Referred, Patient Unavailable Unavailab le Encounter Details Date Type Department Care Team (Late st Contact Info) Description 11/25/2021 Ancillary Orders [facility] Department of Orthopaedics [address] [place] [address] Leonard Ruff MD [address] [place] [address] [place] [address] [email or web address] Left knee pain, unspecified chronicity Social History Tobacco Use Types Packs/Day Years [...] Office Visit [facility] [address] [facility] [place], [place] [address] Aram Allen MD [address] [place] [address] Adri Grimes, PT [address] [facility] [place] [address] 05/15/2025 10:45 AM EDT Office Visit [facility] [address] [facility] [place], [place] [address] Aram Allen MD [address] [place] [address] Adri Grimes, PT [address] [facility] [place] [address] [email or web address] 05/20/2025 10:45 AM EDT Office Visit [facility] [address] [facility] [place], [place] [address] Aram Allen MD [address] [place] [address] Adri Grimes, PT [address] [facility] [place] [address] 05/22/2025 10:45 AM EDT Office Visit [facility] [address] [facility] [place], [place] [address] Aram Allen MD [address] [place] [address] Adri Grimes, PT [address] [facility] [place] [address] [email or web address] 05/27/2025 2:30 PM EST Office Visit [facility] [place], [place] [address] Aram Allen MD [address] [place] [address] Adri Grimes, PT [address] [facility] [place] [address] [email or web address] 05/29/2025 2:30 PM EST Office Visit [facility] PHYSICAL TH[facility]APY [facility] [place] [address] Aram Allen MD [address] [place] [address] Adri Grimes, PT [address] [facility] [place] [address] [email or web address] 06/03/2025 10:45 AM EST Office Visit [facility] PHYSICAL THERAPY [facility] [place] [address] Aram Allen MD [address] [place] [address] Adri Grimes, PT [address] [facility] [place] [address] [email or web address] documented as of this encounter Results * XR KNEE 4 OR MORE VIEWS (BILATERAL) (11/25/2021 10:40 AM EDT) Anatomical Region Laterality Modality Knee Bilateral, Knee Right, Knee Left Digital Radiography 11/25/2021 2:33 PM EDT Impressions 11/25/2021 2:35 PM EDT Left knee: Osteoarthritis, moderate in the medial compartment. Right knee: Osteoarthritis, mild in the medial and patellofemoral compartments. Narrative 11/25/2021 2:35 PM EDT XR KNEE 4 OR MORE VIEWS (BILATERAL) COMPARISON: MRI LOWER EXTREMITY OUTSIDE (NO INTERPRETATION) FINDINGS: Left Knee: No fracture. Moderate narrowing of the medial compartment. Tricompartmental osteophytes. No substantial joint effusion. Right Knee: No fracture. Mild narrowing of the medial and patellofemoral compartments. Marginal osteophytes. Small joint effusion. Procedure Note Jes DO Barber - 11/25/2021 XR KNEE 4 OR MORE VIEWS (BILATERAL) COMPARISON: MRI LOWER EXTREMITY OUTSIDE (NO INTERPRETATION) FINDINGS: Left Knee: No fracture. Moderate narrowing of the medial compartment.Tricompartmental osteophytes. No substantial joint effusion. Right Knee: No fracture. Mild narrowing of the medial and patellofemoralcompartments. Marginal osteophytes. Small joint effusion. IMPRESSION: Left knee: Osteoarthritis, moderate in the medial compartment. Right knee: Osteoarthritis, mild in the medial and patellofemoralcompartments. Leonard Ruff MD IMG XR LOWER EXTREMITY Final Result documented in this encounter Visit Diagnoses Diagnosis Left knee pain, unspecified chronicity Left knee pain, unspecified chronicity documented in this encounter Additional Health Concerns Assessment Noted Time PHQ-2 Depression Total Score: 0 12/29/19 19 11:50 AM EDT documented as of this encounter Care Teams S[employer] Business [employer] Consultant Relationship Specialty Start Date End Date Aram Allen MD [address] [place] [address] PCP - General Internal Medicine 06/13/18 Self-Referred, Patient 06/13/18 documented as of this encounter Additional Source Comments The information contained in this document represents components of the legal health record. It is not the complete legal health record.[facility]
--- OUTSIDE RECORDS SUMMARY | 2025-04-22 17:16 | XMS_ITS | Encounter Summary ---
Author Organization [facility] Address [address] [place] [address] [place] [phone] Phone Care Team Providers Care Associate Doctor Name Role Phone Aram Allen MD Primary Care Provider Self-Referred, Patient Unavailable Unavailab le Encounter Details Date Type Department Care Team (Late st Contact Info) Description 06/22/2018 Procedure Pass [facility] Periop [address] [place] [address] Social History Tobacco Use Types Packs/Day Years Used Date Smoking Tobacco: Former Cigarettes 0.5 20 0 08/13/1967 - 08/13/1987 Smokeless Tobacco: Never Comments:Quite age 38 Alcohol Use Standard Drinks/Week Comments Yes 2 (1 standard drink = 0.6 oz pur [...] Visit [facility] [facility] [address] [place] [address] Aram Allen MD [address] [place] [address] Adri Grimes, PT [facility] [facility] [place] [address] 05/15/2025 10:45 AM EDT Office Visit [facility] [place], [place] [address] Aram Allen MD [address] [place] [address] Adri Grimes, PT [address] [facility] [place] [address] 05/20/2025 10:45 AM EDT Office Visit [facility] [place], [place] [address] Aram Allen MD [address] [place] [address] Adri Grimes, PT [address] [facility] [place] [address] 05/22/2025 10:45 AM EDT Office [facility] [place] [place] [address] Aram Allen MD [address] [place] [address] Adri Grimes, PT [address] [facility] [place], [place] [address] 05/27/2025 2:30 PM EST Office Visit [facility] [place], [place] [address] Aram Allen MD [address] [place] [address] Adri Grimes, PT 15[address] [facility] [place] [address] 05/29/2025 2:30 PM EST Office Visit [facility] [place] [address] Aram Allen MD [address] [place] [address] Adri Grimes, PT 15[address] [facility] [place] [address] 06/03/2025 10:45 AM EST Office Visit [facility] [facility] [place] [place] [address] Aram Allen MD [address] [place] [address] Adri Grimes, PT [address] [facility] [place] [place] [address] [email or web address] documented as of this encounter Visit Diagnoses Not on filedocumented in this encounter Care Teams Associate Doctor Relationship Specialty Start Date End Date Aram Allen MD [address] [place] [phone] PCP - General Internal Medicine 06/13/18 Self-Referred, Patient 06/13/18 documented as of this encounter Additional Source Comments The information contained in this document represents components of the legal health record. It is not the complete legal health record.[facility]
--- OUTSIDE RECORDS SUMMARY | 2025-04-22 17:16 | XMS_ITS | Clinical Summary ---
Author Organization [facility] Address [address] [facility] [address] [place] [address] Phone Care Team Providers Care Information Systems Administrator Name Role Phone Aram Allen MD Primary Care Provider [phone] Self-Referred, Patient Unavailable Unavailab le Allergies No known active allergies Medications cholecalciferol (VITAMIN D3) 25 MCG (1,000 unit) tablet Take 1,000 Units by mouth daily. Active carvedilol (COREG) 25 MG tablet Take 25 mg by mouth 2 (two) times a day. Active estradioL (VAGIFEM) 10 mcg TabIndications:A trophic vaginitis,Female dyspareunia INSERT 1 TABLET VAGINALLY 2TIMES A WEEK 24 tablet 3 2 Active lisinopril (PRINIVIL,ZESTRI L) 40 MG tablet Take 40 mg by mouth daily. Active chlorthalidone (HYGROTON) 25 MG tablet Take 25 mg by mouth daily. Active magnesium oxide 400 mg magnesium Tab Take 400 mg by mouth daily. Active omega 6-now-mvi-fish oil 1,000 mg (120 mg-180 mg) Cap Take 1 capsule by mouth daily. Active amLODIPine (NORVASC) 10 MG tablet Take 10 mg by mouth daily. Active rosuvastatin (CRESTOR) 10 MG tablet Take 10 mg by mouth daily. Active rOPINIRole (REQUIP) 0.25 MG tablet Take 0.25 mg by mouth nightly at bedtime. 4 Active LORazepam (ATIVAN) 0.5 MG tablet Take 0.5 mg by mouth every 6 (six) hours as needed. 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 Hypertension 05/23/2018 Hyperlipidemia Hypertensive disorder Overview (06/20/2018): on medication Postmenopausal bleeding Overview (06/20/2018): seen by [facility] s/p us and endometrial biopsy -atypical endometrial hyperplasia- pt now scheduled for surgery Sleep apnea Family History Medical History Relation Comments No Known Problems Brother Lung cancer Father Breast cancer Maternal Aunt 1 Colon cancer Maternal Aunt 2 Heart attack Maternal Grandfather Cancer Maternal Grandmother Diabetes Maternal Grandmother Heart attack Maternal Uncle 1 Esophageal cancer Maternal Uncle 2 Graves' disease Mother Heart failure Mother Hyperlipidemia Mother Hypertension Mother Lung cancer Paternal Uncle Rectal cancer Sister 1 Rheumatoid arthritis Sister 1 No Known Problems Sister 2 Endometrial cancer Neg Hx Ovarian cancer Neg Hx Relation Status Comments Brother Alive Father Maternal Aunt 1 Maternal Aunt 2 Maternal Grandfather Maternal Grandmother Maternal Uncle 1 Maternal Uncle 2 Mother Paternal Grandfather Paternal Grandmother Paternal Uncle Sister 1 Alive Sister 2 Alive Social History Tobacco Use Types Packs/Day Years Used Date Smoking Tobacco: Former Cigarettes 0.5 20 0 08/13/1967 - 08/13/1987 Smokeless Tobacco: Former Tobacco Cessation:Counseling Given: Not Answered Comments:Quite age 38 Alcohol Use Standard Drinks/Week Comments Yes 4 (1 standard drink = 0.6 oz pur e alcohol) Every Weekend Education Answer Date Recorded Are you interested in more education? Not on alonso e 11/19/2022 Are you concerned about learning? Not on file 11/19/2022 No 11/19/2022 No 11/19/2022 Digital Access Answer Date Recorded No 12/15/2022 No 12/15/2022 Reliable internet access at home? Not on file 12/15/2022 Device with a working camera? Not on file Comments No Sex and Gender Information Value Date Recorded Sex Assigned at Female 05/16/2021 2:54 PM EDT Legal Sex Female 10:53 AM EDT Gender Identity Female 05/16/2021 2:54 PM EDT Sexual Orientation Straight 05/16/2021 2: 55 PM EDT Last Filed Vital Signs Vital Sign Reading Time Taken Comments Blood Pressure 154/80 12/11/2024 3:54 PM EDT Pulse 60 02/20/2024 11:33 AM EDT Temperature 36.5 C (97.7 F) 11/17/2022 11:05 AM EDT Respiratory Rate 16 12/11/2024 3:54 PM EDT Oxygen Saturation 99% 12/11/2024 3:54 PM EDT Inhaled Oxygen Concentration - - Weight 85.3 kg (188 lb) 02/20/2024 11:33 AM EDT Height 172.7 cm (5' 8 ) 01/14/2022 9:40 AM EDT Body Mass Index 28.59 01/14/2022 9:40 AM EDT Plan of Treatment Upcoming Encounters Date Type Department Care Team (Late st Contact Info) Description 05/13/2025 10:45 AM EDT Office Visit [facility] [address] [place] [address] Aram Allen MD [address] [place] [address] Adri Grimes, PT [address] [facility] [place] [address] [email or web address] 05/15/2025 10:45 AM EDT Office Visit [facility] [place] [facility] [address] [place] [address] Aram Allen MD [address] [place] [address] Adri Grimes, PT [address] [facility] [place] [address] [email or web address] 05/20/2025 10:45 AM EDT Office Visit [facility] [address] [place] [address] Aram Allen MD [address] [place] [address] GrimesAdri, PT [address] [facility] [place] [address] [email or web address] 05/22/2025 10:45 AM EDT Office Visit [facility] [facility] [place], [place] [address] Aram Allen MD [address] [place] [address] Grimes, Adri, PT [address] [facility] [place] [address] [email or web address] 05/27/2025 2:30 PM EST Office Visit [facility] [address] [facility] [place], [place] [address] Aram Allen MD [address] [place] [address] Grimes, Adri, PT [address] [place] [address] [email or web address] 05/29/2025 2:30 PM EST Office Visit [facility] [address] [place], [place] [address] Aram Allen MD [address] [place] [address] Adri Grimes, PT [address] [facility] [place], [place] [address] [email or web address] 06/03/2025 10:45 AM EST Office Visit [facility] [address] [facility] [place], [place] [address] Aram Allen MD [address] [place] [address] Adri Grimes, PT [address] [place] [address] [email or web address] Health Maintenance Due Date Last Done Comments Adult Td,Tdap Booster 1950 HEPATITIS C SCREENING 1970 COLOGUARD 1997 COLONOSCOPY 1997 COLORECTAL CANCER SCREENING 1997 FIT TEST 1997 FOBT 1997 SIGMOIDOSCOPY 1997 VIRTUAL COLONOSCOPY 1997 LIPID PANEL 12/08/2009 12/08/2004 DEPRESSION SCREENING 12/29/2019 12/28/2018 PNEUMOCOCCAL VACCINES (50+ years) (2 of 2 - PCV) 07/02/2021 07/02/2020 CREATININE LEVEL 04/08/2023 04/08/2022, 06/20/2018 POTASSIUM LEVEL 04/08/2023 04/08/2022, 06/20/2018 INFLUENZA VACCINE (#1) 2025 , 05/20/2023, 06/11/2022, Additional history exists COVID-19 VACCINE (2023- season) 2025 07/04/2024, 06/11/2022, 12/16/2021, Additional history exists BLOOD PRESSURE 06/13/2025 12/11/2024 MAMMOGRAM 11/27/2025 11/28/2023, 05/0 12/2023, 11/10/2022, Additional history exists RSV VACCINE (1 - 1-dose 75+ series) 2027 OSTEOPOROSIS SCREENING INITIAL (ONE-TIME) Completed 10/07/2020 ZOSTER VACCINES Completed 03/03/2023, 11/01/2022 SMOKING STATUS SCREENING (Once After 26 Yrs) Completed 02/20/2024 HEPATITIS A VACCINES Aged Out No long er eligible based on patient's age to complete this topic HIB VACCINES Aged Out No longer eligi ble based on patient's age to complete this topic MENINGOCOCCAL VACCINES (ACWY) Aged Out No longer eligible based on patient's age to complete this topic MENINGOCOCCAL VACCINES (B) Aged Out N o longer eligible based on patient's age to complete this topic Medical Devices Implanted Type Area Personal Financial Representative Device Identifier Shelf Expiration Date Model / Serial / Lot Screw Screw Left: Ankle Procedures Procedure Name Priority Date/Time Associated Diagnosis Comments COMPREHENSIVE METABOLIC PANEL Routine 04/08/2022 3:55 PM EDT Positive ZOE (antinuclear antibody) Multiple joint pain from Last 3 Months or Most Recently Relevant to Health Maintenance Results * (ABNORMAL) Comprehensive metabolic panel (04/08/2022 3:55 PM EDT) SODIUM 141 136 - 145 mmol/L [facility] POTASSIUM 4.0 3.4 - 5.1 mmol/L [facility] CHLORIDE 102 98 - 107 mmol/L [facility] CO2 28 22 - 31 mmol/L [facility] BUN 14 6 - 23 mg/dL [facility] CREATININE 0.82 0.50 - 1.20 mg/dL [facility] GLUCOSE 104(H) 70 - 100 mg/dL [facility] ALBUMIN 4.9 3.5 - 5.2 g/dL [facility] TOTAL PROTEIN 7.4 6.4 - 8.3 g/dL [facility] CALCIUM 9.6 8.8 - 10.7 mg/dL [facility] ALKALINE PHOSPHATASE 97 35 - 130 U/L [facility] TOTAL BILIRUBIN 0.5 0.0 - 1.0 mg/dL [facility] AST 15 10 - 50 U/L [facility] ALT 14 10 - 50 U/L [facility] GLOBULIN 2.5 2.2 - 4.2 g/dL [facility] EGFR 77 >59 mL/min/1. 73m2 [facility] Comment:Estimated glomerular filtration rate calculated using the CKD-EPI refit equation. ANION GAP 11 7 - 17 mmol/L [facility] Blood 04/08/2022 3:55 PM EDT 04/08/2022 4:25 PM EDT Jennifer Rodriguze MD, PhD LAB BLOOD ORDERABLES Adriana carmona Result [facility] [address] [place] [address] from Last 3 Months or Most Recently Relevant to Health Maintenance Insurance MEDICARE PART A & B [employer]EX SUPPLEMENT MEDICARE PART A & B [employer] MED[employer] SUPPLEMENT MEDICARE PART A & B [facility] MEDEX SUPPLEMENT MEDICARE PART A & B [employer] MED[employer] SUPPLEMENT MEDICARE PART A & B [employer] MEDEX SUPPLEMENT MEDICARE PART A & B [employer] SUPPLEMENT MEDICARE PART A & B [employer] SUPPLEMENT MEDICARE PART A & B [employer] SUPPLEMENT MEDICARE PART A & B [employer] MEDEX SUPPLEMENT Care Teams Information Systems Administrator Relationship Specialty Start Date End Date Aram Allen MD [address] [place] [address] PCP - General Internal Medicine 06/13/18 Self-Referred, Patient 06/13/18 Additional Source Comments The information contained in this document represents components of the legal health record. It is not the complete legal health record.[facility]
--- OUTSIDE RECORDS SUMMARY | 2025-04-22 17:16 | XMS_ITS | Patient Health Record ---
Author Organization [facility] Address [address] [place] [phone] Support Name Relationship Address Phone TONY GALLOWAY Guarantor Unknown [phone] Reason For Referral No Information Plan Of Treatment No Information
--- OUTSIDE RECORDS SUMMARY | 2025-04-22 17:16 | XMS_ITS | Clinical Summary ---
Author Organization [facility] Address [address] [place] [id number] Care Team Providers Care Classroom Paraprofessional Name Role Phone AllenCyndee Primary Care Provider [phone] Allergies Active Allergy Reactions Criticality Noted Date Comments Neuromuscular Blockers, Steroidal Other (See Comments) 10/31/2024 PATIENT IS ALLERGIC TO ALL STEROIDS Medications rosuvastatin (CRESTOR) 10 MG tablet Take 1 tablet (10 mg total) by mouth daily. Active lisinopriL (PRINIVIL,ZESTRIL) 40 MG tablet Take 1 tablet (40 mg total) by mouth daily. Active carvediloL (COREG) 25 MG tablet Take 1 tablet (25 mg total) by mouth every morning & every evening. Active rOPINIRole (REQUIP) 0.5 MG tablet Take 1 tablet (0.5 mg total) by mouth. 06/13/20 24 Active chlorthalidone (HYGROTEN) 25 MG tablet Take 1 tablet (25 mg total) by mouth daily. Active estradioL (VAGIFEM) 10 mcg Tab Insert 1 tablet (10 mcg total) into the vagina daily. Active magnesium citrate and oxide (magnesium citrate,mag oxide) 250 mg cap Take by mouth. Acti ve cholecalciferol 1,000 unit tablet Take 1 tablet (1,000 Units total) by mouth. Active TURMERIC ROOT-CATHERINE ROOT EXT ORAL Take by mouth. Activ e aspirin 81 MG EC tablet Take 1 tablet (81 mg total) by mouth in the morning and 1 tablet (81 mg total) in the evening. To prevent blood clot. 60 tablet 04/10/20 25 025 Active omeprazole (PriLOSEC) [address] capsule Take 1 capsule (20 mg total) by mouth in the morning. While taking ASA/NSAIDs. 30 capsule 04/10/20 25 025 Active ibuprofen (MOTRIN) 400 MG tablet Take 2 tablets (800 mg total) by mouth every 8 hours as needed for pain. May reduce to 1 tablet every 8 hours as pain improves. 120 tablet 04/10/20 25 Active ondansetron (ZOFRAN) 4 MG tablet Take 1 tablet (4 mg total) by mouth every 6 hours as needed for nausea. 15 tablet 04/10/20 25 Active acetaminophen (TYLENOL EXTRA STRENGTH) 500 MG tablet Take 2 tablets (1,000 mg total) by mouth every 8 hours as needed for pain. 120 tablet 04/10/20 25 Active traMADoL (ULTRAM) 50 mg tabletIndications: Primary osteoarthritis of right knee Take 1 tablet (50 mg total) by mouth every 6 hours as needed for pain. Always take lowest possible dose to manage pain and rapidly decrease dose and frequency as pain improves. 20 tablet 04/10/20 25 Active tranexamic acid (LYSTEDA) 650 mg Tab Take 1 tablet (650 mg total) by mouth in the morning and 1 tablet (650 mg total) at noon and 1 tablet (650 mg total) in the evening. Do all this for 3 days. Start postoperative day #1 in the morning. 9 tablet 04/10/20 25 025 Encounters Date Type Department Care Team Description 04/16/2025 Telephone [facility] [address] [place] [id number] Ingrid Tuttle PA PT Treatment (Scheduled RIGHT TKR 04/24/2025- pt is requesting Outpt P.T. script be faxed to [facility] fax# [phone]. ) 04/10/2025 2:00 PM EDT Telemedicine [facility] [address] [place] [phone] Ingrid Tuttle PA Primary osteoarthritis of right knee (Primary Dx); Encounter for preoperative assessment 04/09/2025 Telephone [facility] [address] [place] [phone] Ingrid Tuttle PA medications (Scheduled on 04/24/2025 R TKR in [place]; pt was instructed by their pre op RN to call surgeon's office so she can discuss the current medications she's on.. can't wait until 04/19/2025 telehealth per pt. ) from Last 3 Months Family History Medical History Relation Comments Cancer Father Lung cancer Cancer Maternal Aunt Breast cancer Cancer Sister Anal cancer Relation Status Comments Father Maternal Aunt Alive Mother Sister Alive Social History Tobacco Use Types Packs/Day [...] Orientation Straight 09/10/2024 12 :52 PM EST Last Filed Vital Signs Vital Sign Reading Time Taken Comments Blood Pressure - - Pulse - - Temperature - - Respiratory Rate - - Oxygen Saturation - - Inhaled Oxygen Concentration - - Weight 83.9 kg (185 lb) 01/15/2025 12:14 PM EDT Height 170.2 cm (5' 7 ) 01/15/2025 12:14 PM EDT Body Mass Index 28.98 01/15/2025 12:14 PM EDT Plan of Treatment Upcoming Encounters Date Type Department Care Team (Late st Contact Info) Description 04/24/2025 10:00 AM EDT Office Visit [facility] Scheduling [address] [facility] [address] [place] [address] Farhad Raphael MD [address] [place] [address] with Physician 05/22/2025 9:00 AM EDT Office Visit [facility] Billing Representative [address] [facility] [address] [place] [address] Ingrid Tuttle PA [address] [place] [address] In Person with Physician Loading [employer]ter Health Maintenance Due Date Last Done Comments Blood Pressure 1952 Depression Screening 1956 Hepatitis C Screening 1970 DTaP,Tdap,and Td Vaccines (1 - Tdap) 1971 CT Colonography 1997 Colonoscopy 1997 FIT 1997 FOBT 1997 Sigmoidoscopy 1997 Lipid Panel 12/08/2009 12/08/2004 Osteoporosis Screening 2017 Medicare Initial AWV [id number] 03/25/2018 Pneumococcal Vaccine: 50+ Years (2 of 2 - PCV) 07/02/2021 07/02/2020 COVID-19 Vaccine ( season) 2025 07/04/2024, 06/11/2022, 12/16/2021, Additional history exists Influenza Vaccine (#1) 2025 , 05/16/2024, 05/20/2023, Additional history exists Colorectal Cancer Screening 2025 Multitarget Stool DNA (Cologuard) 2025 2022, 2022 Breast Cancer Screening 12/29/2026 12/30/19, 12/29/2024, 11/28/2023, Additional history exists Zoster Vaccine Completed 03/03/2023, 11/01/2022 Meningococcal B Vaccines Aged Out No longer eligible based on patient's age to complete this topic Meningococcal Vaccines Aged Out No lo nger eligible based on patient's age to complete this topic Insurance MEDICARE Member Subscriber Plan / Payer (Ef fective 2017-Present) Name:Romy Romero Member ID:[id number] Relation to Subscriber:Self Name:Romy Romero Subscriber ID:[id number] Payer ID:Not on file Group ID:Not on file Type:Traditional / Indemnity Address: [place] [phone] [employer] MED[employer] Care Teams Classroom Paraprofessional Relationship Specialty Start Date End Date Cyndee Allen [address] [place] [id number] PCP - General Pediatric Medicine 09/10/24
== END 2025-04-23 11:09 | disposition home or self-care (01) ==
LOC: HO.HSMS 15:08
PROVIDERS: PCP Internal Medicine; Visit Provider Psychiatry & Neurology Neurology
DX: G25.81 Restless legs syndrome (principal)
CPT/HCPCS: 99204; G2211

== ENCOUNTER → 2025-04-22 15:08 | Outpatient (BNVA) | payer MEDICARE, SELFPAY | PROVIDERS: PCP Internal Medicine; Visit Provider Psychiatry & Neurology Neurology | DX: G25.81 Restless legs syndrome (principal) | CPT/HCPCS: 99202 ==